=== PATIENT | male | born 1965 | race Hispanic/Latino ===

== ENCOUNTER 2017-07-30 11:16 | Observation (INO) | payer BC, OTHER ==
[~2017-07-30] VITALS: Ht 165.1 cm; Wt 60.2 kg
[~2017-07-30 11:16] MED LIST: DOXY100C2 PO
[2017-07-30 11:36] LABS: BASOPHILS % (AUTO) 0.8 % (0.0-5.0); EOSINOPHILS % (AUTO) 1.1 % (0.0-8.0); HEMATOCRIT 41.9 % (42-54); MEAN CORPUSCULAR HEMOGLOBIN 32.9 pg (27.0-33.0); MEAN CORPUSCULAR HGB CONC 35.7 g/dL (32.0-36.0); MEAN CORPUSCULAR VOLUME 92.1 fL (79-99); MONOCYTES % (AUTO) 8.3 % (3.0-13.0); NEUTROPHILS % (AUTO) 61.8 % (40.0-77.0); PLATELET COUNT (AUTO) 272 K/uL (130-400); RED BLOOD CELL COUNT(AUTO) 4.54 MIL/uL (4.50-6.20); RED CELL DISTRIBUTION WIDTH 13.9 % (11.0-15.5); WHITE BLOOD COUNT (AUTO) 6.9 K/uL (4.8-10.8)
[2017-07-30 11:48] LABS: CREATININE 0.8 mg/dL (0.5-1.5); POTASSIUM 3.9 mmol/L (3.5-5.1)
[2017-07-30 11:54] LABS: PARTIAL THROMBOPLASTIN TIME 28.1 SEC (26.3-35.5); PROTHROMBIN TIME 10.5 SEC (9.6-11.6)
[2017-07-30 12:02] LABS: ALBUMIN 3.5 g/dL (3.5-5.0); BILIRUBIN,TOTAL 0.7 mg/dL (0.2-1.0); CREATINE KINASE MB 0.7 ng/mL (0.5-3.6); TOTAL PROTEIN, SERUM 7.5 g/dL (6.0-8.3)
[2017-07-30] MEDS ORDERED: ENOXAPARIN SODIUM 40 MG/0.4 ML SYRINGE SQ ONE (14:01)
[2017-07-30] MEDS ORDERED: ASPIRIN 81MG TAB.CHEW ONE (14:01)
[2017-07-30 19:21] LABS: CREATINE KINASE MB 0.6 ng/mL (0.5-3.6); CREATINE KINASE, TOTAL 33 U/L (21-232); MYOGLOBIN 19 ng/mL (10-92); TROPONIN I < 0.04 ng/mL (0.00-0.06)
[2017-07-30 21:16] VITALS: BP 134/85
[2017-07-31] VITALS (7 sets, daily range): BP systolic 103–128; BP diastolic 66–84
[2017-07-31 02:35] LABS: HEMATOCRIT 41.6 % (42-54); MEAN CORPUSCULAR HEMOGLOBIN 32.1 pg (27.0-33.0); MEAN CORPUSCULAR HGB CONC 34.7 g/dL (32.0-36.0); MEAN CORPUSCULAR VOLUME 92.4 fL (79-99); NUCLEATED RED BLOOD CELLS 0.1 % (0.0-0.19); PLATELET COUNT (AUTO) 258 K/uL (130-400); RED CELL DISTRIBUTION WIDTH 13.8 % (11.0-15.5); WHITE BLOOD COUNT (AUTO) 7.3 K/uL (4.8-10.8)
[2017-07-31 02:53] LABS: INR 1.02 (0.85-1.15); PARTIAL THROMBOPLASTIN TIME 28.9 SEC (26.3-35.5); PROTHROMBIN TIME 10.7 SEC (9.6-11.6)
[2017-07-31 02:59] LABS: ALANINE AMINOTRANSFERASE 23 U/L (12-78); ALBUMIN 3.2 g/dL (3.5-5.0); ASPARTATE AMINOTRANSFERASE 9 U/L (10-37); BILIRUBIN,TOTAL 0.6 mg/dL (0.2-1.0); CARBON DIOXIDE 26 mmol/L (21-32); CHLORIDE 108 mmol/L (101-111); CHOLESTEROL 146 mg/dL (<200); CREATINE KINASE MB < 0.5 ng/mL (0.5-3.6); CREATINE KINASE, TOTAL 27 U/L (21-232); CREATININE 0.8 mg/dL (0.5-1.5); GLOMERULAR FILTR. RATE CALC 107 mL/min (>60); GLUCOSE,RANDOM 106 mg/dL (70-105); HDL CHOLESTEROL 64 mg/dL (29-71); LDL DIRECT 77 mg/dL (0-99); MYOGLOBIN 19 ng/mL (10-92); POTASSIUM 3.7 mmol/L (3.5-5.1); SODIUM SERUM 142 mmol/L (136-145); TOTAL PROTEIN, SERUM 7.1 g/dL (6.0-8.3); TRIGLYCERIDES 63 mg/dL (30-200); TROPONIN I < 0.04 ng/mL (0.00-0.06); UREA NITROGEN, BLOOD 20 mg/dL (7-18)
[2017-07-31] MEDS ORDERED: REGADENOSON 0.4 MG/5 ML PF SYG IVP SCH (11:15)
[2017-07-31 11:37] LABS: CREATINE KINASE MB < 0.5 ng/mL (0.5-3.6); CREATINE KINASE, TOTAL 26 U/L (21-232); MYOGLOBIN 21 ng/mL (10-92); TROPONIN I < 0.04 ng/mL (0.00-0.06)
[2017-07-31] MEDS: ENOXAPARIN SODIUM 40 MG/0.4 ML SYRINGE SQ SCH (14:31)
[2017-07-31] MEDS: METOPROLOL TARTRATE 25 MG TAB PO SCH ×2 (14:31→20:44)
[2017-07-31] MEDS: ASPIRIN 81MG TAB.CHEW PO SCH (14:31)
[2017-07-31] MEDS ORDERED: LIDOCAINE HCL-MPF 1% 2ML VIAL IVP PRN (15:45)
[2017-07-31] MEDS ORDERED: POTASSIUM CHLORIDE 10% ELIXIR 20 MEQ/15 ML UDCUP PO PRN (15:45)
[2017-07-31] MEDS ORDERED: POTASSIUM CHLORIDE 20MEQ/100ML 100 ML IV PRN (15:45)
[2017-07-31] MEDS ORDERED: MAGNESIUM 2GM PREMIX 50ML 50 ML IV SCH (15:45)
[2017-07-31] MEDS: POTASSIUM CHLORIDE 20 MEQ ERTAB PO PRN ×2 (18:04→23:13)
[2017-07-31 19:00] LABS: CREATINE KINASE MB < 0.5 ng/mL (0.5-3.6); CREATINE KINASE, TOTAL 22 U/L (21-232); MYOGLOBIN 19 ng/mL (10-92); TROPONIN I < 0.04 ng/mL (0.00-0.06)
[2017-08-01 04:37] VITALS: BP 125/87
[2017-08-01 05:31] LABS: MAGNESIUM 2.4 mg/dL (1.80-2.40); POTASSIUM 4.5 mmol/L (3.5-5.1)
[2017-08-01 08:00] VITALS: BP 110/64
[2017-08-01] MEDS: ASPIRIN 81MG TAB.CHEW PO SCH (08:42)
[2017-08-01] MEDS: METOPROLOL TARTRATE 25 MG TAB PO SCH (08:43)
[2017-08-01] MEDS: ENOXAPARIN SODIUM 40 MG/0.4 ML SYRINGE SQ SCH (08:43)
[2017-08-01 11:30] VITALS: BP 108/75
== END 2017-08-01 17:55 | disposition home or self-care (01) ==
LOC: EDH 11:16 → EDHIP 13:15 → INTOOBSV 13:15 → 4BH 20:08
PROVIDERS: ADMIT Internal Medicine Infectious Disease; ATTEND Internal Medicine Infectious Disease
DX: R07.89 Other chest pain (principal); I10 Essential (primary) hypertension; I45.10 Unspecified right bundle-branch block; Z91.19 Patient's noncompliance with other medical treatment and regimen; Z82.49 Family history of ischemic heart disease and other diseases of the circulatory system
CPT/HCPCS: 36415 ×3; 71046; 78452; 80053 ×2; 80061; 82550 ×5; 82553 ×5; 83735 ×2; 83874 ×4; 84132; 84484 ×5; 85025; 85027; 85610 ×2; 85730 ×2; 93005; 93017; 93306; 96365; 96372 ×2; 99285; A9500 ×2; G0378 ×53; J1650 ×3; J2785; J3475; 96374

== ENCOUNTER 2018-01-29 16:47 | Emergency (ER) | payer BC ==
[2018-01-29] MEDS ORDERED: ASPIRIN 325 MG TABLET ONE (16:59)
[2018-01-29] MEDS ORDERED: NITROGLYCERIN 0.4 MG SL TAB SL ONE (16:59)
[2018-01-29] MEDS ORDERED: LIDOCAINE HCL 2% VISCOUS 15 ML UDCUP ONE (17:23)
[2018-01-29] MEDS ORDERED: MAG HYDROX/AL HYDROX/SIMETH ES 30 ML SUSP UDCUP ONE (17:23)
[2018-01-29 17:51] LABS: BASOPHILS % (AUTO) 0.6 % (0.0-5.0); EOSINOPHILS % (AUTO) 1.4 % (0.0-8.0); HEMATOCRIT 43.3 % (42-54); LYMPHOCYTES % (AUTO) 23.6 % (21.0-51.0); MEAN CORPUSCULAR HEMOGLOBIN 32.3 pg (27.0-33.0); MEAN CORPUSCULAR HGB CONC 34.4 g/dL (32.0-36.0); MEAN CORPUSCULAR VOLUME 93.6 fL (79-99); MONOCYTES % (AUTO) 7.8 % (3.0-13.0); NEUTROPHILS % (AUTO) 66.6 % (40.0-77.0); NUCLEATED RED BLOOD CELLS 0.1 % (0.0-0.19); PLATELET COUNT (AUTO) 286 K/uL (130-400); RED BLOOD CELL COUNT(AUTO) 4.62 MIL/uL (4.50-6.20); RED CELL DISTRIBUTION WIDTH 12.9 % (11.0-15.5); WHITE BLOOD COUNT (AUTO) 8.7 K/uL (4.8-10.8)
[2018-01-29 18:15] LABS: INR 0.97 (0.85-1.15); PROTHROMBIN TIME 10.2 SEC (9.6-11.6)
[2018-01-29 18:17] LABS: POTASSIUM 3.9 mmol/L (3.5-5.1)
[2018-01-29 18:32] LABS: ALBUMIN 3.6 g/dL (3.5-5.0); BILIRUBIN,TOTAL 0.4 mg/dL (0.2-1.0); CREATINE KINASE MB 0.9 ng/mL (0.5-3.6); TOTAL PROTEIN, SERUM 7.6 g/dL (6.0-8.3)
[2018-01-29 18:45] LABS: B-TYPE NATRIURETIC PEPTIDE 50 pg/mL (0-100)
== END 2018-01-29 20:03 | disposition home or self-care (01) ==
LOC: EDH 16:47
DX: R07.89 Other chest pain (principal); R10.13 Epigastric pain; Z79.82 Long term (current) use of aspirin; Z79.899 Other long term (current) drug therapy
CPT/HCPCS: 36415; 71045; 80053; 82550; 82553; 83880; 84484; 85025; 85610; 85730; 93005; 94761

== ENCOUNTER 2022-08-16 06:16 | Emergency (ER) | payer BC, OTHER ==
[~2022-08-16] VITALS: Ht 165.1 cm; Wt 68.5 kg
[2022-08-16 07:14] LABS: BASOPHILS % (AUTO) 0.5 % (0.0-5.0); EOSINOPHILS % (AUTO) 0.7 % (0.0-8.0); LYMPHOCYTES % (AUTO) 22.2 % (21.0-51.0); MEAN CORPUSCULAR HEMOGLOBIN 32.7 pg (27.0-33.0); MEAN CORPUSCULAR HGB CONC 33.8 g/dL (32.0-36.0); MEAN CORPUSCULAR VOLUME 96.9 fL (79-99); MONOCYTES % (AUTO) 8.9 % (3.0-13.0); NEUTROPHILS % (AUTO) 67.3 % (40.0-77.0); PLATELET COUNT (AUTO) 261 K/uL (130-400); RED BLOOD CELL COUNT(AUTO) 4.13 MIL/uL (4.50-6.20); RED CELL DISTRIBUTION WIDTH 13.4 % (11.0-15.5); WHITE BLOOD COUNT (AUTO) 5.5 K/uL (4.8-10.8)
[2022-08-16] MEDS ORDERED: IBUP-2070 PO (07:21)
[2022-08-16] MEDS ORDERED: KETOROLAC 60 MG VIAL (30MG/ML) IM ONE (07:30)
[2022-08-16 07:31] LABS: ALBUMIN 3.5 g/dL (3.5-5.0); CREATININE 0.9 mg/dL (0.5-1.5); POTASSIUM 4.2 mmol/L (3.5-5.1)
== END 2022-08-16 08:35 | disposition home or self-care (01) ==
LOC: EDH 06:16
DX: K62.89 Other specified diseases of anus and rectum (principal)
CPT/HCPCS: 99283; 80053; 85025; 36415; 96372; J1885

== ENCOUNTER 2022-12-19 10:59 | Emergency (ER) | payer BC, OTHER ==
[~2022-12-19] VITALS: Ht 165.1 cm; Wt 66.7 kg
[~2022-12-19 10:59] MED LIST changes: -DOXY100C2 PO; +IBUP-2070 PO
[2022-12-19 12:12] LABS: BASOPHILS # (AUTO) 0.05 K/uL (0.00-0.20); BASOPHILS % (AUTO) 0.4 % (0.0-5.0); EOSINOPHILS # (AUTO) 0.05 K/uL (0.00-0.70); EOSINOPHILS % (AUTO) 0.4 % (0.0-8.0); HEMATOCRIT 44.4 % (42-54); LYMPHOCYTES # (AUTO) 1.4 K/uL (1.0-4.8); MEAN CORPUSCULAR HEMOGLOBIN 31.8 pg (27.0-33.0); MEAN CORPUSCULAR HGB CONC 33.6 g/dL (32.0-36.0); MEAN CORPUSCULAR VOLUME 94.7 fL (79-99); MONOCYTES # (AUTO) 1.6 K/uL (0.1-1.0); MONOCYTES % (AUTO) 13.1 % (3.0-13.0); NEUTROPHILS # (AUTO) 8.6 K/uL (1.8-7.7); NEUTROPHILS % (AUTO) 72.4 % (40.0-77.0); PLATELET COUNT (AUTO) 373 K/uL (130-400); RED BLOOD CELL COUNT(AUTO) 4.69 MIL/uL (4.50-6.20); RED CELL DISTRIBUTION WIDTH 12.3 % (11.0-15.5); WHITE BLOOD COUNT (AUTO) 11.9 K/uL (4.8-10.8)
[2022-12-19 12:16] LABS: APPEARANCE,URINE CLEAR (CLEAR); BILIRUBIN,URINE NEGATIVE (NEGATIVE); COLOR,URINE YELLOW (YELLOW); GLUCOSE, URINE (UA) NEGATIVE (NEGATIVE); KETONES,URINE NEGATIVE (NEGATIVE); LEUKOCYTE ESTERASE ,URINE NEGATIVE Leu/uL (NEGATIVE); NITRATE,URINE NEGATIVE (NEGATIVE); OCCULT BLOOD,URINE SMALL (NEGATIVE); PH,URINE 5.5 (5.0-8.0); PROTEIN,URINE 20 mg/dL (NEGATIVE); UROBILINOGEN,URINE 0.2 mg/dL (0.2-1.0)
[2022-12-19 12:24] LABS: INR 0.95 (0.85-1.15); PROTHROMBIN TIME 11.1 SEC (9.6-11.6)
[2022-12-19 12:29] LABS: CREATININE 0.9 mg/dL (0.5-1.5); POTASSIUM 3.8 mmol/L (3.5-5.1)
[2022-12-19 12:38] LABS: BILIRUBIN,TOTAL 0.5 mg/dL (0.2-1.0); TOTAL PROTEIN, SERUM 7.3 g/dL (6.0-8.3)
[2022-12-19 12:46] LABS: ADD UA MICROSCOPIC YES
[2022-12-19 12:55] LABS: BACTERIA,URINE RARE /HPF (None Seen); CALCIUM OXALATE CRYSTALS,UR RARE /LPF (None Seen); MUCUS,URINE RARE LPF (None Seen)
[2022-12-19 13:26] VITALS: BP 124/74; PULSE 71; RESP 17; O2SAT 100
[2022-12-19] MEDS ORDERED: IBUP-2070 PO (14:08)
== END 2022-12-19 14:19 | disposition home or self-care (01) ==
LOC: EDH 10:59
DX: R22.31 Localized swelling, mass and lump, right upper limb (principal); M54.2 Cervicalgia
CPT/HCPCS: 36415; 73120; 80053; 81001; 82550; 83605; 84484; 85025; 85378; 85610; 85651; 85730; 87040; 87088; 93971

== ENCOUNTER 2023-12-05 09:38 | Emergency (ER) | payer BC ==
[~2023-12-05] VITALS: Ht 165.1 cm; Wt 62.1 kg
[2023-12-05 10:41] LABS: CREATININE 0.9 mg/dL (0.5-1.3); POTASSIUM 4.1 mmol/L (3.5-5.1)
[2023-12-05 10:44] LABS: BASOPHILS # (AUTO) 0.03 K/uL (0.00-0.20); BASOPHILS % (AUTO) 0.4 % (0.0-5.0); EOSINOPHILS # (AUTO) 0.06 K/uL (0.00-0.70); EOSINOPHILS % (AUTO) 0.9 % (0.0-8.0); HEMATOCRIT 43.2 % (42-54); IMMATURE GRANULOCYTE ABSOLUTE 0.04 K/uL (0-1); LYMPHOCYTES # (AUTO) 1.5 K/uL (1.0-4.8); LYMPHOCYTES % (AUTO) 21.7 % (21.0-51.0); MEAN CORPUSCULAR HEMOGLOBIN 30.4 pg (27.0-33.0); MEAN CORPUSCULAR HGB CONC 33.1 g/dL (32.0-36.0); MEAN CORPUSCULAR VOLUME 91.7 fL (79-99); MONOCYTES # (AUTO) 0.6 K/uL (0.1-1.0); MONOCYTES % (AUTO) 8.3 % (3.0-13.0); NEUTROPHILS # (AUTO) 4.6 K/uL (1.8-7.7); NEUTROPHILS % (AUTO) 68.1 % (40.0-77.0); PLATELET COUNT (AUTO) 279 K/uL (130-400); RED BLOOD CELL COUNT(AUTO) 4.71 MIL/uL (4.50-6.20); RED CELL DISTRIBUTION WIDTH 12.9 % (11.0-15.5); WHITE BLOOD COUNT (AUTO) 6.8 K/uL (4.8-10.8)
[2023-12-05 10:46] LABS: ALBUMIN 3.5 g/dL (3.5-5.0); BILIRUBIN,TOTAL 0.5 mg/dL (0.2-1.0); INR 1.16 (0.85-1.15); PROTHROMBIN TIME 12.4 SEC (9.6-11.6); TOTAL PROTEIN, SERUM 7.7 g/dL (6.0-8.3)
[2023-12-05 12:10] VITALS: BP 131/76; PULSE 88; RESP 14; O2SAT 99
== END 2023-12-05 12:38 | disposition home or self-care (01) ==
LOC: EDH 09:38
DX: K62.5 Hemorrhage of anus and rectum (principal); Z79.01 Long term (current) use of anticoagulants; Z79.899 Other long term (current) drug therapy; Z98.890 Other specified postprocedural states
CPT/HCPCS: 36415; 80053; 85025; 85610; 85730; 93005

== ENCOUNTER 2024-09-08 17:39 | Emergency (ER) | payer BC, OTHER ==
[~2024-09-08] VITALS: Ht 165.1 cm; Wt 66.7 kg
[2024-09-08 18:07] LABS: BASOPHILS # (AUTO) 0.05 K/uL (0.00-0.20); BASOPHILS % (AUTO) 0.6 % (0.0-5.0); EOSINOPHILS # (AUTO) 0.05 K/uL (0.00-0.70); EOSINOPHILS % (AUTO) 0.6 % (0.0-8.0); HEMATOCRIT 45.1 % (42-54); IMMATURE GRANULOCYTE ABSOLUTE 0.03 K/uL (0-1); LYMPHOCYTES # (AUTO) 1.6 K/uL (1.0-4.8); MEAN CORPUSCULAR HEMOGLOBIN 31.3 pg (27.0-33.0); MEAN CORPUSCULAR HGB CONC 33.5 g/dL (32.0-36.0); MEAN CORPUSCULAR VOLUME 93.4 fL (79-99); MONOCYTES # (AUTO) 0.7 K/uL (0.1-1.0); MONOCYTES % (AUTO) 7.8 % (3.0-13.0); NEUTROPHILS # (AUTO) 6.5 K/uL (1.8-7.7); NEUTROPHILS % (AUTO) 72.7 % (40.0-77.0); PLATELET COUNT (AUTO) 294 K/uL (130-400); RED BLOOD CELL COUNT(AUTO) 4.83 MIL/uL (4.50-6.20); RED CELL DISTRIBUTION WIDTH 13.1 % (11.0-15.5); WHITE BLOOD COUNT (AUTO) 8.9 K/uL (4.8-10.8)
[2024-09-08 18:12] LABS: POTASSIUM 4.4 mmol/L (3.5-5.1)
[2024-09-08 18:17] LABS: ALBUMIN 3.7 g/dL (3.5-5.0); BILIRUBIN,DIRECT 0.1 mg/dL (0.0-0.3); BILIRUBIN,TOTAL 0.3 mg/dL (0.2-1.0); TOTAL PROTEIN, SERUM 7.3 g/dL (6.0-8.3)
--- NOTE | 2024-09-08 18:19 | ERN ---
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 Patient reports shortness of breath, but denies any vomiting, diarrhea, abdominal pain or any other associated symptoms at this time. Clinical Esthetician Dr. Aguirre. Allergies: Coded Allergies: No Known Drug Allergies (Unverified Allergy, 03/23/12) Home Meds Active Scripts Ibuprofen (Ibuprofen) 600 Mg Tablet, 600 MG PO Q6H PRN for PAIN, #30 TAB Prov:MAHESH OCHOA V OIL WELL ENGINEER 12/19/22 Ibuprofen (Ibuprofen) 600 Mg Tablet, 600 MG PO TID PRN for PAIN for 7 Days, #20 TAB Prov:DECLAN MILLER MD 08/16/22 Past Medical History Past Medical History: Cancer Additional Past Medical Hx: COLON CA, LLE CLOT Surgical History: Other Surgical History Other: COLON RESECTION, RT INGUINAL HERNIA Review of System Dictation Constitutional: Negative for fever,chills, and weight loss Eyes: Negative for injury, pain,redness, and discharge ENT: Negative for injury,pain or swelling Cardiovascular: Positive for chest pain negative for palpitations, and edema Respiratory: Positive for shortness of breath negative for cough, and wheezing, Abdomen/GI: Negative for abdominal pain, nausea, vomiting, diarrhea, and constipation Back: Negative for injury and pain : Negative for injury, bleeding and discharge MS/Extremity: Negative for injury and deformity Skin: Negative for rash, and discoloration Neuro: Negative for headache, weakness, numbness, tingling, and seizure Psych: Negative for suicide ideation, homicidal ideation, and hallucinations Initial Vital Sign VS Vital Signs Date Time Temp Pulse Resp B/P (MAP) Pulse Ox O2 Delivery O2 Flow Rate FiO2 09/08/24 17:45 98.2 94 18 130/80 100 Room Air 0 09/08/24 18:25 21 Physical Exam Dictation General: awake, alert, NAD Head/Face: Normocephalic, atraumatic Eyes: PERRL, EOMI, vision at baseline ENT: oral cavity clear, TMs clear, no signs of infection Neck: Trachea midline, supple, no nuchal rigidity Cardiovascular: RRR, normal S1/S2, No MRGs, no JVD Respiratory: CTAB, no respiratory distress, No rales or wheezes Abdomen: Soft, non-tender, non-distended, normal bowel sounds, no guarding or rebound. Skin: Warm, dry, normal turgor, no rash MS/Extremity: Pulses equal, no cyanosis, neurovascular intact, FROM Neuro: COAx4, GCS 15, strength 5/5, CN 2-12 intact, normal cerebellar exam, normal gait, Psych: Normal behavior, mood, and affect normal Results (Laboratory/Radiology) Laboratory/Radiology Laboratory Tests Test 09/08/24 17:54 09/08/24 19:12 White Blood Count 8.9 K/uL (4.8-10.8) Red Blood Count 4.83 MIL/uL (4.50-6.20) Hemoglobin 15.1 g/dL (14.0-18.0) Hematocrit 45.1 % (42-54) Mean Corpuscular Volume 93.4 fL (79-99) Mean Corpuscular Hemoglobin 31.3 pg (27.0-33.0) Mean Corpuscular Hemoglobin Concent 33.5 g/dL (32.0-36.0) Red Cell Distribution Width 13.1 % (11.0-15.5) Platelet Count 294 K/uL (130-400) Mean Platelet Volume 10.4 fL (7.5-10.5) Immature Granulocyte % (Auto) 0.3 % (0-1) Neutrophils (%) (Auto) 72.7 % (40.0-77.0) Lymphocytes (%) (Auto) 18.0 % (21.0-51.0) L Monocytes (%) (Auto) 7.8 % (3.0-13.0) Eosinophils (%) (Auto) 0.6 % (0.0-8.0) Basophils (%) (Auto) 0.6 % (0.0-5.0) Neutrophils # (Auto) 6.5 K/uL (1.8-7.7) Lymphocytes # (Auto) 1.6 K/uL (1.0-4.8) Monocytes # (Auto) 0.7 K/uL (0.1-1.0) Eosinophils # (Auto) 0.05 K/uL (0.00-0.70) Basophils # (Auto) 0.05 K/uL (0.00-0.20) Absolute Immature Granulocyte (auto 0.03 K/uL (0-1) Nucleated Red Blood Cells 0.0 % (0.0-0.19) D-Dimer Quantitative (PE/DVT) 140 ng/mL (0-500) Sodium Level 140 mmol/L (136-145) Potassium Level 4.4 mmol/L (3.5-5.1) Chloride Level 103 mmol/L (101-111) Carbon Dioxide Level 27 mmol/L (21-32) Blood Urea Nitrogen 16 mg/dL (7-18) Creatinine 1.0 mg/dL (0.5-1.3) Glomerular Filtration Rate Calc 86 mL/min (>90) Random Glucose 94 mg/dL (70-105) Total Calcium 8.6 mg/dL (8.5-10.1) Total Bilirubin 0.3 mg/dL (0.2-1.0) Direct Bilirubin 0.1 mg/dL (0.0-0.3) Aspartate Amino Transf (AST/SGOT) 13 U/L (10-37) Alanine Aminotransferase (ALT/SGPT) 21 U/L (12-78) Alkaline Phosphatase 86 U/L (50-136) Troponin I High Sensitivity < 4 ng/L (4-75) L 4 ng/L (4-75) B-Type Natriuretic Peptide 25 pg/mL (0-100) Total Protein 7.3 g/dL (6.0-8.3) Albumin 3.7 g/dL (3.5-5.0) Labs Reviewed?: Yes EKG Comment: EKG 09/08/2024 time 5:36 p.m. ventricular rate 89, RI 134, QRS D 85 QT 367. Sinus rhythm, no STEMI. ED Course ED Course Orders Procedure Category Date Status Time 12 Lead Ekg Tracing- EKG 09/08/24 Logged Technical 17:42 D-Dimer LAB 09/08/24 Complete 17:51 12 Lead Ekg Tracing- EKG 09/08/24 Logged Technical 17:51 B-Type Natriuretic LAB 09/08/24 Complete Peptide 17:51 Basic Metabolic Panel LAB 09/08/24 Complete 17:51 Cbc With Differential LAB 09/08/24 Complete 17:51 Hepatic Function Panel LAB 09/08/24 Complete 17:51 Troponin I High LAB 09/08/24 Complete Sensitivity 17:51 Chest 1vw RAD 09/08/24 Resulted 17:51 Troponin I High LAB 09/08/24 Complete Sensitivity 18:57 Vital Signs Date Time Temp Pulse Resp B/P (MAP) Pulse Ox O2 Delivery O2 Flow Rate FiO2 09/08/24 20:49 74 19 116/74 99 Room Air* 0 21 09/08/24 19:24 98.4 79 17 130/78 98 Room Air* 0 21 09/08/24 18:25 98.6 84 19 130/80 99 Room Air* 0 21 09/08/24 17:45 98.2 94 18 130/80 100 Room Air 0 HEART Score Response (Comments) Value History: Low suspicion (0) 0 EKG: Normal 0 Age: 45-65yrs (+1) 1 Risk Factors: 1-2 risk factors (+1) 1 Initial Troponin: Normal limit (0) 0 HEART Score Risk: Low Risk for MACE (1-3) Total 2 Medical Decision Making MDM MDM: Differential diagnosis: Chest pain, shortness of breath 1900- Patient care is being transferred at shift change Risk of complication and/or morbidity or mortality of patient management: None Medications-Per medication reconciliation Need for hospitalization: Patient does not meet criteria for hospitalization. Need for emergency major/minor surgery: No There are no social concerns with this patient. I independently interpreted the test that were performed, results were reviewed by me and considered findings on radiology if ordered. Medical management and examination interpretation discussions were had by me with other qualified healthcare professionals as indicated for the patient's care. Sequentials troponins were both negative. Patient can go home. DX & DISP Disposition: Discharge Departure Impression: Primary Impression: Chest pain Condition: Stable Additional Instructions: Please follow-up with your primary care physician and for the ultrasound that was ordered by him to assess your left chest mass. Stay well hydrated. Referrals: MAXIMILIANO KILLIAN (PCP) MARY DYER MD Sep 08, 2024 18:19 AMARI CHEN MD Sep 08, 2024 21:06
[2024-09-08 18:24] LABS: B-TYPE NATRIURETIC PEPTIDE 25 pg/mL (0-100)
--- NOTE | 2024-09-08 18:26 | HMCIMG ---
CHEST 1VW HISTORY: Shortness of breath COMPARISON: 01/29/2018 FINDINGS: A frontal projection of the chest was obtained. Mild bilateral pulmonary infiltrates are seen may be related to mild pulmonary vascular congestion with possible superimposed pneumonitis. The heart is borderline enlarged. Degenerative changes are seen. No evidence of aortic calcification is seen. IMPRESSION: 1. Mild bilateral pulmonary infiltrates are seen may be related to mild pulmonary vascular congestion with possible superimposed pneumonitis.
--- NOTE | 2024-09-08 19:23 | NUR ---
PT CARE ASSUMED AT THIS TIME
[2024-09-08 21:27] VITALS: BP 124/70; PULSE 80; RESP 15; TEMP 98.4; O2SAT 98
--- NOTE | 2024-09-10 06:52 | EKG ---
[facility] Test Date: 2024-09-08 Test Time: 17:36:07 Pat Name: DECLAN MENDENHALL Department: ED Room: Gender: Male Chemical Dependency Nurse: [id number] : 1965 Requested By: MARY DYER Order Number: [id number] Reading MD: Measurements Intervals [place] Rate: 89 P: 55 ND: 134 QRS: 68 QRSD: 85 T: 27 QT: 367 QTc: 446 Interpretive Statements Sinus rhythm No previous ECG available for comparison Please click the below link to view image of tracing.
== END 2024-09-08 21:33 | disposition home or self-care (01) ==
LOC: EDH 17:39
DX: R07.89 Other chest pain (principal); R06.02 Shortness of breath; Z98.890 Other specified postprocedural states
CPT/HCPCS: 36415; 71045; 80048; 80076; 83880; 84484; 85025; 85378; 93005; 99283

== ENCOUNTER 2025-01-04 08:57 | Observation (INO) | payer OTHER ==
[~2025-01-04] VITALS: Ht 165.1 cm; Wt 66.1 kg
[~2025-01-04 08:57] MED LIST changes: +IBUP-1492 PO; -IBUP-2070 PO
--- NOTE | 2025-01-04 09:41 | ERN ---
General Chief Complaint: Rectal Bleed Stated Complaint: RECTAL BLEEDING Time Seen by MD: 09:00 Source: patient, family History of Present Illness Initial Comments Patient is a 59-year-old male coming in complaining of rectal bleed. Per patient she has been having this for two weeks. He states that he had a colonoscopy performed and shortly after noticed some bleeding. Patient states that he has a history diverticulosis. Allergies: Coded Allergies: No Known Drug Allergies (Unverified Allergy, 03/23/12) Home Meds Active Scripts Ibuprofen (Ibuprofen) 600 Mg Tablet, 600 MG PO Q6H PRN for PAIN, #30 TAB Prov:MAHESH OCHOA 12/19/22 Ibuprofen (Ibuprofen) 600 Mg Tablet, 600 MG PO TID PRN for PAIN for 7 Days, #20 TAB Prov:DECLAN MILLER MD 08/16/22 Past Medical History Past Medical History: DVT, High Cholesterol Medical History Other: COLON CA, LLE CLOT Past Surgical History: Other Surgical History Other: CA COLON REMOVED 2020,HERNIA REPAIR ROS Dictation CONSTITUTIONAL: No chills, no fever, no weakness, no diaphoresis, no malaise. HEAD/FACE: No signs of trauma. EENT: No eye pain, no blurred vision, no tearing, no double vision, no ear pain, no ear discharge, no nose pain, no nasal congestion, no throat pain, no throat swelling, no mouth pain. RESPIRATORY: No cough, no orthopnea, no SOB, no stridor, no wheezing. CARDIOVASCULAR: No chest pain, no edema, no palpitations, no syncope. GASTROINTESTINAL/ABDOMINAL: No abdominal pain, no constipation, no diarrhea, no nausea, no vomiting. GENITOURINARY: No abnormal discharge, no dysuria, no frequent urination, no hematuria. No complaints of pain in the genitals. MUSCULOSKELETAL: No back pain, no gout, no joint pain, no joint swelling, no muscle pain, no muscle stiffness, no neck pain. INTEGUMENTARY: No change in color, no change in hair/nails, no dryness, no lesion, no lumps, no rash. NEUROLOGICAL/PSYCH: No anxiety, not depressed, no emotional problem, no headache, no numbness, no pre-existing deficit, no history of seizures, no tremors, no weakness. HEMATOLOGIC/LYMPHATIC: Not anemic, no history of blood clots, no apparent bleeding, no bruising, glands not swollen. All Systems Negative, Except as Noted. Physical Exam Physical Exam Dictation VITAL SIGNS: Reviewed. GENERAL APPEARANCE: Alert, oriented x3, no acute distress, obese. HEAD AND FACE: Non-traumatic. EYES: PERRL, pink conjunctivas, eyelid no trauma, anterior chamber clear. EARS: Pinnas intact and no signs of trauma or erythema. Ear canals clear and no discharge. TMs no erythema. NOSE: No discharge, no bleeding. OROPHARYNX: Mouth normal, teeth no caries, tongue pink. Pharynx clear, no erythema. Tonsils no exudates, no abscesses noted. Mucous membrane moist. NECK: Supple, non-tender, no thyromegaly, no masses, no JVD, no bruits. BREAST: Deferred. CHEST: No tenderness, no crepitus, no paradoxical movement, no retractions. LUNGS: Clear, well-ventilated, symmetric, no rales, no wheezing, no rhonchi, no stridor, good breath sounds bilaterally. HEART: Regular rate, regular rhythm, no murmur, no gallops. VASCULAR: No peripheral edema. ABDOMEN: Soft, positive bowel sounds, nondistended, no guarding, nontender, no rebound, no masses no hepatomegaly, no splenomegaly, no Salvador's sign, no hernias. RECTAL: External hemorrhoids on rectal exam, possible internal hemorrhoids due to bright red blood on rectal exam GENITAL: Deferred. NEUROLOGICAL: Normal speech, gross motor function intact, gross sensory function intact. MUSCULOSKELETAL: Neck nontender, full range of motion, back nontender, full range of motion. EXTREMITIES: Nontender, full range of motion. SKIN: Color pink, dry, no turgor, no rash, no lacerations, no abrasions, no contusions. LYMPHATICS: Deferred. Results Laboratory and Microbiology Lab and Micro Result Laboratory Tests Test 01/04/25 09:43 01/04/25 11:16 White Blood Count 6.0 K/uL (4.8-10.8) Red Blood Count 4.93 MIL/uL (4.50-6.20) Hemoglobin 15.5 g/dL (14.0-18.0) Hematocrit 45.6 % (42-54) Mean Corpuscular Volume 92.5 fL (79-99) Mean Corpuscular Hemoglobin 31.4 pg (27.0-33.0) Mean Corpuscular Hemoglobin Concent 34.0 g/dL (32.0-36.0) Red Cell Distribution Width 13.1 % (11.0-15.5) Platelet Count 273 K/uL (130-400) Mean Platelet Volume 10.3 fL (7.5-10.5) Immature Granulocyte % (Auto) 0.7 % (0-1) Neutrophils (%) (Auto) 67.2 % (40.0-77.0) Lymphocytes (%) (Auto) 21.9 % (21.0-51.0) Monocytes (%) (Auto) 8.8 % (3.0-13.0) Eosinophils (%) (Auto) 0.7 % (0.0-8.0) Basophils (%) (Auto) 0.7 % (0.0-5.0) Neutrophils # (Auto) 4.0 K/uL (1.8-7.7) Lymphocytes # (Auto) 1.3 K/uL (1.0-4.8) Monocytes # (Auto) 0.5 K/uL (0.1-1.0) Eosinophils # (Auto) 0.04 K/uL (0.00-0.70) Basophils # (Auto) 0.04 K/uL (0.00-0.20) Absolute Immature Granulocyte (auto 0.04 K/uL (0-1) Nucleated Red Blood Cells 0.0 % (0.0-0.19) Sodium Level 138 mmol/L (136-145) Potassium Level 3.9 mmol/L (3.5-5.1) Chloride Level 105 mmol/L (101-111) Carbon Dioxide Level 27 mmol/L (21-32) Blood Urea Nitrogen 20 mg/dL (7-18) H Creatinine 0.8 mg/dL (0.5-1.3) Glomerular Filtration Rate Calc 101 mL/min (>90) Random Glucose 111 mg/dL (70-105) H Total Calcium 8.8 mg/dL (8.5-10.1) Stool Occult Blood POSITIVE (NEGATIVE) H Labs Reviewed?: Yes EKG/XRAY/US/CT/MRI CT Scan Comment [place] [address] [address] IMAGING REPORT Signed PATIENT: DECLAN MENDENHALL MR#: [id number] : 1965 SEX: M AGE: 59 LOCATION: [facility] ORDER 3 STATUS: [facility] ER REPORT#: [id number] SERVICE 2 REASON: gi bleed ORDERING PHYSICIAN: KLEBER DANIELLE MD PROCEDURE: ABD PEL WO - CT ABDOMEN/PELVIS W/O CONTRAST CT ABDOMEN/PELVIS W/O CONTRAST REASON: gi bleed COMPARISON: None. FINDINGS: Lung bases are clear. The heart and pericardium appears to be normal. There is mitral valve annulus calcification. There is a small hiatal hernia. There are no focal liver lesions. There are normal-appearing kidneys.. Spleen and pancreas appear unremarkable. The gallbladder appears normal as well. Bowel loops appear unremarkable. There are occasional diverticulosis with no evidence of diverticulitis. This includes normal appearance of the appendix There is no evidence of free fluid or intraperitoneal air. There are no focal fluid collections. The retroperitoneum appear normal as do pelvic soft tissue structures. Redemonstrated mild atherosclerotic changes. There is bilateral iliac vein stenting on the left side is extending to the left common femoral vein. The anterior abdominal wall is intact. Osseous structures appear unremarkable. The prostate and seminal vesicle appears to be normal. There is no mass or free fluid seen. There is suggestion of small right-sided hydrocele. IMPRESSION: 1. Small hiatal hernia 2. No acute process seen in the CT of the abdomen and pelvis without intravenous contrast. 3. Small right-sided hydrocele CT was performed with one or more following dose reduction techniques: automated exposure control, adjustment of the mA and kv according to patient's size, or use of a iterative reconstruction technique. DICTATED BY: RONNA PATEL MD DATE: 01/04/25 1059 ELECTRONICALLY SIGNED BY: RONNA PATEL MD DATE: 01/04/25 110 [facility] MDM: Differential diagnosis: GI bleed, hemorrhoids, diverticulitis, diverticulosis, Rationale: Tests considered and ordered secondary to shared decision making include: Previous outside records reviewed: Old ER visits. Risk of complication and/or morbidity or mortality of patient management: None Medications-Per medication reconciliation Need for hospitalization: Patient does meet criteria for hospitalization. Need for emergency major/minor surgery: No There are no social concerns with this patient. Prescription drug management Prescriptions will include symptomatic care Patient's prior external medical records from other ER visits were reviewed by me as indicated. Prior testing and results from previous visits were reviewed. Prior tests were taken into account with medical decision making and resource utilization, independent historian/historians were used to obtain complete medical history. I independently interpreted the test that were performed, results were reviewed by me and considered findings on radiology if ordered. Medical management and examination interpretation discussions were had by me with other qualified healthcare professionals as indicated for the patient's care. Patient will be admitted under the care of hospitalist group for ongoing management. ED Course Orders Procedure Category Date Status Time Cbc With Differential LAB 01/04/25 Complete 09:33 Basic Metabolic Panel LAB 01/04/25 Complete 09:33 Type And Screen BBK 01/04/25 Complete 09:33 Occult Blood Stool LAB 01/04/25 Complete Single Only 09:33 Ct Abdomen/Pelvis W/O CT 01/04/25 Resulted Contrast 09:33 Pantoprazole 40mg Inj PHA 01/04/25 Complete (Protonix 40mg Inj 10:00 Current Medications Medications (Trade) Dose Ordered Sig/Jeffrey Route PRN Reason Start Time Stop Time Status Last Admin Dose Admin Pantoprazole Sodium (PROTonix 40MG INJ) 80 mg ONCE ONCE IVP 01/04/25 10:00 01/04/25 10:01 DC 01/04/25 09:52 Vital Signs Date Time Temp Pulse Resp B/P (MAP) Pulse Ox O2 Delivery O2 Flow Rate FiO2 01/04/25 11:23 98.4 64 17 119/73 100 Room Air* 0 21 01/04/25 09:29 98.4 78 19 129/74 98 Room Air* 0 21 01/04/25 08:59 98.1 77 18 125/75 99 Room Air 0 DX & DISP Disposition: Inpatient Decision to Admit Time: 11:44 Departure Impression: Primary Impression: Anticoagulant long-term use Additional Impression: Bright red blood per rectum Condition: Stable Referrals: MAXIMILIANO KILLIAN (PCP) KLEBER DANIELLE MD Jan 04, 2025 09:41
[2025-01-04 09:53] LABS: IMMATURE GRANULOCYTE ABSOLUTE 0.04 K/uL (0-1); NUCLEATED RED BLOOD CELLS 0.0 % (0.0-0.19); PLATELET COUNT (AUTO) 273 K/uL (130-400); RED BLOOD CELL COUNT(AUTO) 4.93 MIL/uL (4.50-6.20); RED CELL DISTRIBUTION WIDTH 13.1 % (11.0-15.5); WHITE BLOOD COUNT (AUTO) 6.0 K/uL (4.8-10.8)
[2025-01-04 10:00] LABS: CREATININE 0.8 mg/dL (0.5-1.3); GLOMERULAR FILTR. RATE CALC 101.0 mL/min (>90); GLUCOSE,RANDOM 111.0 mg/dL (70-105); SODIUM SERUM 138.0 mmol/L (136-145); UREA NITROGEN, BLOOD 20.0 mg/dL (7-18)
--- NOTE | 2025-01-04 11:04 | HMCIMG ---
CT ABDOMEN/PELVIS W/O CONTRAST REASON: gi bleed COMPARISON: None. FINDINGS: Lung bases are clear. The heart and pericardium appears to be normal. There is mitral valve annulus calcification. There is a small hiatal hernia. There are no focal liver lesions. There are normal-appearing kidneys.. Spleen and pancreas appear unremarkable. The gallbladder appears normal as well. Bowel loops appear unremarkable. There are occasional diverticulosis with no evidence of diverticulitis. This includes normal appearance of the appendix There is no evidence of free fluid or intraperitoneal air. There are no focal fluid collections. The retroperitoneum appear normal as do pelvic soft tissue structures. Redemonstrated mild atherosclerotic changes. There is bilateral iliac vein stenting on the left side is extending to the left common femoral vein. The anterior abdominal wall is intact. Osseous structures appear unremarkable. The prostate and seminal vesicle appears to be normal. There is no mass or free fluid seen. There is suggestion of small right-sided hydrocele. IMPRESSION: 1. Small hiatal hernia 2. No acute process seen in the CT of the abdomen and pelvis without intravenous contrast. 3. Small right-sided hydrocele CT was performed with one or more following dose reduction techniques: automated exposure control, adjustment of the mA and kv according to patient's size, or use of a iterative reconstruction technique.
[2025-01-04] MEDS ORDERED: RIVA20TA PO (11:46)
[2025-01-04] MEDS ORDERED: CLOP75TA32 PO (11:46)
[2025-01-04 12:15] LABS: INR 1.42 (0.85-1.15)
--- NOTE | 2025-01-04 12:16 | HP ---
[facility] HISTORY AND PHYSICAL Date of Service: Jan 04, 2025 Time of Service: 12:09 HISTORY OF PRESENT ILLNESS: Date of service: 01/04/2025, patient was seen in ER room 18 59-year-old male with underlying history of lower extremity deep vein thrombosis, history of PAD, history of chronic anticoagulation with Xarelto, history of colon cancer in 2020 status post removal of tumor via Colonoscopy who presented to the ER for further evaluation of hematochezia. Patient states that he had a flexible sigmoidoscopy done by Dr.Dao Powers, on 12/20/2024, since then, he has been having persistent 4-5 episodes of hematochezia everyday. He has had two episodes of hematochezia today and felt lightheaded and dizzy prompting him to come to the ER for further evaluation. Denies any melena. Per report of the sigmoidoscopy, patient was noted to have mild diverticulosis of the sigmoid colon and post polypectomy scar in the distal rectum with no specimen collected. Denies any fevers or chills. Denies any significant abdominal pain. Denies any syncopal falls today other than dizziness. Patient has underlying history of deep vein thrombosis of the lower extremity along with PAD. He has been maintained on chronic anticoagulation with Xarelto as well as antiplatelet therapy with Plavix. He took both the dose of Xarelto and Plavix today even with the persistent bleeding. Labs on presentation showed WBC count of 6000, hemoglobin of 15.5, platelet count of [id number]. BMP showed sodium of 138, potassium 3.9, bicarb of 27, BUN of 20, creatinine of 0.8. Patient will be admitted under hospitalist service in cardiac telemetry floor. We will monitor closely for further signs of bleeding. We will start patient on IV fluids and IV antibiotics. Consultation with Gastroenterology will be requested. Given persistent bleeding, we will have to hold anticoagulation and antiplatelet therapy. 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 Anticipate hospitalization for at least 48-72 hours. We will see how patient progresses closely. REVIEW OF SYSTEMS CONSTITUTIONAL: Denies fevers, chills, or night sweats. No unintentional weight loss reported. NEUROLOGICAL: Denies headache, amaurosis fugax, motor weakness, sensory deficit, vertigo/spinning sensation, gait abnormalities, or tremors. ENT: No hearing loss, otalgia, otorrhea, rhinitis, rhinorrhea, hoarseness, or sore throat. CARDIOVASCULAR: Denies any exertional angina, dyspnea on exertion, orthopnea, paroxysmal nocturnal dyspnea, palpitations, life-threatening arrhythmias, claudication. PULMONARY: Denies any shortness of breath, cough, phlegm/sputum, hemoptysis, pleuritic chest pain. SLEEP: Denies morning headaches, daytime somnolence or napping. Denies difficulty falling asleep, staying asleep, waking from sleep. Denies knowledge of snoring. GASTROINTESTINAL: Hematochezia since procedure on 12/20/2024 denies hematemesis, melena or significant abdominal pain. GENITOURINARY: Denies frequency, urgency, nocturia, hematuria or incontinence (Storage/Irritative symptoms.) Low urinary stream, straining to void, urinary intermittency or hesitancy, splitting of the voiding stream, terminal dribbling. ENDOCRINOLOGIC: Denies polyuria, polydipsia, polyphagia or heat/cold intolerances. HEMATOLOGIC: Denies thrombophilia/previous clots, or coagulopathy/bleeding disorders. ONCOLOGIC: Denies personal history of malignancy. DERMATOLOGIC: Denies rashes or pruritus. PSYCHIATRIC: Denies any suicidal or homicidal ideation. Denies hallucinations. PAST MEDICAL HISTORY: History of deep vein thrombosis of the left lower extremity, peripheral arterial disease, history of chronic anticoagulation with Xarelto, patient reports having a colon tumor in 2020 which was resected by colonoscopy PAST SURGICAL HISTORY: Patient reports having peripheral lower extremity vascular intervention previously, he has had prior colonoscopies, history of abdominal hernia repair PAST SOCIAL HISTORY: Denies active smoking, drinks socially, denies illicit drug use FAMILY HISTORY: Denies pertinent family history Allergies: No known drug allergies Home medications: Patient reports being on Plavix 75 mg daily, Xarelto 20 mg daily Coded Allergies: No Known Drug Allergies (Unverified Allergy, 03/23/12) PHYSICAL EXAM GENERAL APPEARANCE: The patient is awake, alert, and oriented, in no acute cardiopulmonary distress. NEUROLOGICAL: Cranial nerves II-XII grossly intact. Motor is 5/5 in bilateral upper and lower extremities proximal to distal. No sensory deficits. HEENT: Face is symmetric. Pupils are equal and reactive. Extraocular movements are intact. NECK: Supple. No JVD. No thyromegaly. No submental, submandibular, pre- /postauricular, occipital or supraclavicular lymphadenopathy. CHEST: Normal chest expansion. No Telemetry. LUNGS: Absence of any rales, rhonchi or any wheezing. CARDIOVASCULAR: Regular. S1 and S2 normal. No appreciable rubs, murmurs or gallops. ABDOMEN: Soft, nontender, and nondistended. There is no rebound, voluntary guarding, or rigidity. External hemorrhoids noted with no active bleeding, bright red blood noted in rectal vault : Deferred. No Lay. EXTREMITIES: Non-edematous and not cyanotic. No clubbing. Good capillary refill. SKIN: No skin breakdown. Vital Sign (Last 24 Hours) 01/04/25 11:23 Temp 98.4 Pulse 64 Resp 17 B/P (MAP) 119/73 Pulse Ox 100 O2 Delivery Room Air* O2 Flow Rate 0 FiO2 21 LABS: Laboratory: Test 01/04/25 11:16 01/04/25 09:43 Range/Units Stool Occult Blood POSITIVE H NEGATIVE White Blood Count 6.0 4.8-10.8 K/uL Red Blood Count 4.93 4.50-6.20 MIL/uL Hemoglobin 15.5 14.0-18.0 g/dL Hematocrit 45.6 42-54 % Mean Corpuscular Volume 92.5 79-99 fL Mean Corpuscular Hemoglobin 31.4 27.0-33.0 pg Mean Corpuscular Hemoglobin Concent 34.0 32.0-36.0 g/dL Red Cell Distribution Width 13.1 11.0-15.5 % Platelet Count 273 130-400 K/uL Mean Platelet Volume 10.3 7.5-10.5 fL Immature Granulocyte % (Auto) 0.7 0-1 % Neutrophils (%) (Auto) 67.2 40.0-77.0 % Lymphocytes (%) (Auto) 21.9 21.0-51.0 % Monocytes (%) (Auto) 8.8 3.0-13.0 % Eosinophils (%) (Auto) 0.7 0.0-8.0 % Basophils (%) (Auto) 0.7 0.0-5.0 % Neutrophils # (Auto) 4.0 1.8-7.7 K/uL Lymphocytes # (Auto) 1.3 1.0-4.8 K/uL Monocytes # (Auto) 0.5 0.1-1.0 K/uL Eosinophils # (Auto) 0.04 0.00-0.70 K/uL Basophils # (Auto) 0.04 0.00-0.20 K/uL Absolute Immature Granulocyte (auto 0.04 0-1 K/uL Nucleated Red Blood Cells 0.0 0.0-0.19 % Sodium Level 138 136-145 mmol/L Potassium Level 3.9 3.5-5.1 mmol/L Chloride Level 105 101-111 mmol/L Carbon Dioxide Level 27 21-32 mmol/L Blood Urea Nitrogen 20 H 7-18 mg/dL Creatinine 0.8 0.5-1.3 mg/dL Glomerular Filtration Rate Calc 101 >90 mL/min Random Glucose 111 H 70-105 mg/dL Total Calcium 8.8 8.5-10.1 mg/dL Current Medications Medications (Trade) Dose Ordered Sig/Jeffrey Route PRN Reason Start Time Stop Time Status Last Admin Dose Admin Acetaminophen (TYLenol 325MG TAB) 650 mg Q6H PRN PO MILD PAIN (1-3) 01/04/25 12:00 02/03/25 11:59 Ceftriaxone Sodium (ROCEphine 1G INJ) 1 gm Q24H IVPB 01/04/25 12:00 01/14/25 11:59 Lactated Ringer's 1,000 ml @ 80 mls/hr [id number] IV 01/04/25 12:00 02/03/25 11:59 Metronidazole/ Sodium Chloride 100 ml @ 100 mls/hr TID IVPB 01/04/25 14:00 01/14/25 13:59 Multivitamins Therapeutic (Multivitamin Tablet) 1 tab DAILY PO 01/05/25 09:00 02/04/25 08:59 Ondansetron HCl (zoFRAN 4MG INJ) 4 mg Q6H PRN IVP NAUSEA/VOMITING 01/04/25 12:00 02/03/25 11:59 Pantoprazole Sodium (PROTonix 40MG INJ) 40 mg BID IVP 01/04/25 21:00 02/03/25 20:59 DIAGNOSTICS / RADIOLOGY: SERVICE REASON: gi bleed ORDERING PHYSICIAN: KLEBER DANIELLE MD PROCEDURE: ABD PEL WO - CT ABDOMEN/PELVIS W/O CONTRAST CT ABDOMEN/PELVIS W/O CONTRAST REASON: gi bleed COMPARISON: None. FINDINGS: Lung bases are clear. The heart and pericardium appears to be normal. There is mitral valve annulus calcification. There is a small hiatal hernia. There are no focal liver lesions. There are normal-appearing kidneys.. Spleen and pancreas appear unremarkable. The gallbladder appears normal as well. Bowel loops appear unremarkable. There are occasional diverticulosis with no evidence of diverticulitis. This includes normal appearance of the appendix There is no evidence of free fluid or intraperitoneal air. There are no focal fluid collections. The retroperitoneum appear normal as do pelvic soft tissue structures. Redemonstrated mild atherosclerotic changes. There is bilateral iliac vein stenting on the left side is extending to the left common femoral vein. The anterior abdominal wall is intact. Osseous structures appear unremarkable. The prostate and seminal vesicle appears to be normal. There is no mass or free fluid seen. There is suggestion of small right-sided hydrocele. IMPRESSION: 1. Small hiatal hernia 2. No acute process seen in the CT of the abdomen and pelvis without intravenous contrast. 3. Small right-sided hydrocele CT was performed with one or more following dose reduction techniques: automated exposure control, adjustment of the mA and kv according to patient's size, or use of a iterative reconstruction technique. DICTATED BY: RONNA PATEL MD DATE: 01/04/25 1059 ELECTRONICALLY SIGNED BY: RONNA PATEL MD DATE: 01/04/25 1107 ASSESSMENT: Persistent nonresolving hematochezia post sigmoidoscopy, 12/20/2024, POA history of post polypectomy scar involving the distal rectum, POA Dizziness/lightheadedness, likely secondary to underlying bleeding, POA History of diverticulosis, POA History of chronic anticoagulation with Xarelto as outpatient, POA History of chronic antiplatelet therapy with Plavix, POA History of lower extremity deep vein thrombosis, POA History of peripheral arterial disease, POA Reported history of colon tumor which was resected by colonoscopy in 2020, POA PLAN: Patient will be admitted to cardiac telemetry floor We will start patient on IV hydration with LR at 80 mL/hour, patient's initial hemoglobin of 15.5 is likely not accurate, we will know patient's true hemoglobin in the next 24 hours We will check H&H q.6 hours We will monitor closely for frequency and amount of further episodes of hematochezia We will keep patient on IV Protonix 40 mg twice daily We will start patient on IV Rocephin/Flagyl We will maintain at least two peripheral IVs, 18 gauges Consultation with GI will be requested, with Dr. Munoz We will have with Cardiology follow up with the patient, patient is on anticoagulation and antiplatelet therapy with nonresolving hematochezia ongoing for the past two weeks, patient does have underlying history of DVT and PAD We will see if repeat colonoscopy is anticipated during the hospitalization Transfuse to maintain hemoglobin greater than 7-8 or in case of hemodynamic instability We will check an orthostatic vitals in the patient We will keep patient on SCDs for DVT prophylaxis Date of service: 01/04/2025 Prognosis: Guarded Anticipate hospitalization for at least 48-72 hours Plan of care was discussed with patient and family at bedside, Isauro Garcia MD Advanced Care Planning: Which of the following were discussed: Hospice care: Yes __ No _x_ Therapeutic options: Yes _x_ No __ Advance directives: Yes _x_ No __ Other discussions: Discussed with who?: Patient Voluntary nature of this service was explained to the patient? Yes _x_ No __ Amount of time spent: 20 minutes ISAURO GARCIA MD Jan 04, 2025 12:16
[2025-01-04 12:35] LABS: ASPARTATE AMINOTRANSFERASE 16.0 U/L (10-37); TOTAL PROTEIN, SERUM 7.7 g/dL (6.0-8.3)
[2025-01-04] MEDS: LACTATED RINGERS 1000ML 1,000 ML IV SCH (12:59)
--- NOTE | 2025-01-04 17:03 | HMCIMG ---
EXAM: US for Deep Venous Thrombosis, bilateral Lower Extremity. CLINICAL HISTORY: Leg Pain and Swelling TECHNIQUE: Real-time ultrasound scan of the veins of the bilateral lower extremity with color Doppler flow, spectral waveform analysis and compression. COMPARISON: None provided. FINDINGS: DEEP VEINS: The common femoral, superficial femoral, and popliteal veins are echolucent and compressible. There is normal color Doppler flow throughout. The visualized calf veins appear patent. SOFT TISSUES: No popliteal fossa cyst or other abnormalities. IMPRESSION: No deep venous thrombosis evident on bilateral lower extremity examination. /[facility]
--- NOTE | 2025-01-04 17:20 | NUR ---
REPORT GIVEN TO MARRY RN, ROOM 221, [facility] SENT UP WITH PATIENT, NO COMPLICATIONS
[2025-01-04] MEDS: PEG 3350/NA SULF,BICARB,CL/KCL 4000 ML SOLN PO ONE ×2 (17:30→19:46)
[2025-01-04 17:51] VITALS: O2SAT 99
[2025-01-04 18:36] VITALS: BP 132/75; PULSE 66; RESP 16; TEMP 98.1; O2SAT 99
[2025-01-04 19:15] VITALS: BP 122/83; PULSE 62; RESP 18; TEMP 98.5
[2025-01-04 20:00] VITALS: O2SAT 97
[2025-01-05] VITALS (18 sets, daily range): BP systolic 97–131; BP diastolic 53–86; PULSE 64–99; RESP 18–20; TEMP 97.8–98.6; O2SAT 98
--- NOTE | 2025-01-05 02:16 | NUR ---
Patient with episode of bloody stool x1.
[2025-01-05 04:28] LABS: IMMATURE GRANULOCYTE ABSOLUTE 0.04 K/uL (0-1); NUCLEATED RED BLOOD CELLS 0.0 % (0.0-0.19); PLATELET COUNT (AUTO) 268 K/uL (130-400); RED BLOOD CELL COUNT(AUTO) 4.59 MIL/uL (4.50-6.20); RED CELL DISTRIBUTION WIDTH 13.1 % (11.0-15.5); WHITE BLOOD COUNT (AUTO) 6.7 K/uL (4.8-10.8)
[2025-01-05 04:56] LABS: ASPARTATE AMINOTRANSFERASE 30.0 U/L (10-37); CREATININE 0.8 mg/dL (0.5-1.3); GLOMERULAR FILTR. RATE CALC 101.0 mL/min (>90); GLUCOSE,RANDOM 82.0 mg/dL (70-105); SODIUM SERUM 140.0 mmol/L (136-145); TOTAL PROTEIN, SERUM 7.1 g/dL (6.0-8.3); UREA NITROGEN, BLOOD 13.0 mg/dL (7-18)
[2025-01-05] MEDS ORDERED: LIDOCAINE PF 100MG/5ML (2%) SYRINGE 5ML ONE (08:07)
[2025-01-05] MEDS: MULTIVITAMIN TABLET PO SCH (09:55)
--- NOTE | 2025-01-05 14:30 | PN ---
[facility] PROGRESS NOTE Date of Service: Jan 05, 2025 Time of Service: 14:28 SUBJECTIVE: [ ] 01/05 PATIENT REMAINS ADMITTED TO THE PCU, CASE DISCUSSED WITH THE RN, NO ACUTE EVENTS OVERNIGHT, THE TIME OF MY VISIT COMFORTABLE, HEMODYNAMICALLY STABLE, AFEBRILE, SATURATING NORMAL ON ROOM AIR, HE DENIES MELENA, NO HEMATOCHEZIA, NO HEMATEMESIS, NO HEMATURIA, NO DYSURIA, NO NAUSEA, NO VOMITING, NO ABDOMINAL DISCOMFORT, TOLERATING DIET. CBC REVIEWED, HEMOGLOBIN MILDLY DROPPED FROM 15.5- 14.4. GI CONSULTATION REQUESTED, FOLLOW INPUT RECOMMENDATION. AT BEDSIDE, CASE DISCUSSED, ALL QUESTIONS ANSWERED. REVIEW OF SYSTEMS CONSTITUTIONAL: Denies fevers, chills, or night sweats. No unintentional weight loss reported. NEUROLOGICAL: Denies headache, amaurosis fugax, motor weakness, sensory deficit, vertigo/spinning sensation, gait abnormalities, or tremors. ENT: No hearing loss, otalgia, otorrhea, rhinitis, rhinorrhea, hoarseness, or sore throat. CARDIOVASCULAR: Denies any exertional angina, dyspnea on exertion, orthopnea, paroxysmal nocturnal dyspnea, palpitations, life-threatening arrhythmias, claudication. PULMONARY: Denies any shortness of breath, cough, phlegm/sputum, hemoptysis, pleuritic chest pain. SLEEP: Denies morning headaches, daytime somnolence or napping. Denies difficulty falling asleep, staying asleep, waking from sleep. Denies knowledge of snoring. GASTROINTESTINAL: Hematochezia since procedure on 12/20/2024 denies hematemesis, melena or significant abdominal pain. GENITOURINARY: Denies frequency, urgency, nocturia, hematuria or incontinence (Storage/Irritative symptoms.) Low urinary stream, straining to void, urinary intermittency or hesitancy, splitting of the voiding stream, terminal dribbling. ENDOCRINOLOGIC: Denies polyuria, polydipsia, polyphagia or heat/cold intolerances. HEMATOLOGIC: Denies thrombophilia/previous clots, or coagulopathy/bleeding disorders. ONCOLOGIC: Denies personal history of malignancy. DERMATOLOGIC: Denies rashes or pruritus. PSYCHIATRIC: Denies any suicidal or homicidal ideation. Denies hallucinations. PHYSICAL EXAM GENERAL APPEARANCE: The patient is awake, alert, and oriented, in no acute cardiopulmonary distress. NEUROLOGICAL: Cranial nerves II-XII grossly intact. Motor is 5/5 in bilateral upper and lower extremities proximal to distal. No sensory deficits. HEENT: Face is symmetric. Pupils are equal and reactive. Extraocular movements are intact. NECK: Supple. No JVD. No thyromegaly. No submental, submandibular, pre- /postauricular, occipital or supraclavicular lymphadenopathy. CHEST: Normal chest expansion. No Telemetry. LUNGS: Absence of any rales, rhonchi or any wheezing. CARDIOVASCULAR: Regular. S1 and S2 normal. No appreciable rubs, murmurs or g allops. ABDOMEN: Soft, nontender, and nondistended. There is no rebound, voluntary guarding, or rigidity. External hemorrhoids noted with no active bleeding, bright red blood noted in rectal vault : Deferred. No Lay. EXTREMITIES: Non-edematous and not cyanotic. No clubbing. Good capillary refill. SKIN: No skin breakdown. Vital Signs (last 8hr) Date Time Temp Pulse Resp B/P (MAP) Pulse Ox O2 Delivery O2 Flow Rate FiO2 01/05/25 12:00 98.6 75 20 131/76 99 Room Air 01/05/25 08:55 66 18 106/66 100 Room Air 01/05/25 08:50 67 18 109/67 100 Room Air 01/05/25 08:45 69 18 106/67 100 Room Air 01/05/25 08:40 71 18 103/65 100 PROCEDURE MASK 10.0 01/05/25 08:35 71 18 109/58 100 PROCEDURE MASK 10.0 01/05/25 08:30 97.9 78 18 103/53 100 PROCEDURE MASK 01/05/25 07:50 Mask 01/05/25 07:50 Mask 10.0 01/05/25 07:27 98.6 70 20 116/74 99 Room Air 01/05/25 07:00 98 Room Air* 0 21 LABS: Laboratory: Test 01/05/25 03:46 01/04/25 13:04 01/04/25 11:16 01/04/25 09:43 Range/Units White Blood Count 6.7 4.8-10.8 K/uL Red Blood Count 4.59 4.50-6.20 MIL/uL Hemoglobin 14.4 14.0-18.0 g/dL Hematocrit 42.4 42-54 % Mean Corpuscular Volume 92.4 79-99 fL Mean Corpuscular Hemoglobin 31.4 27.0-33.0 pg Mean Corpuscular Hemoglobin Concent 34.0 32.0-36.0 g/dL Red Cell Distribution Width 13.1 11.0-15.5 % Platelet Count 268 130-400 K/uL Mean Platelet Volume 10.6 H 7.5-10.5 fL Immature Granulocyte % (Auto) 0.6 0-1 % Neutrophils (%) (Auto) 64.3 40.0-77.0 % Lymphocytes (%) (Auto) 23.6 21.0-51.0 % Monocytes (%) (Auto) 10.1 3.0-13.0 % Eosinophils (%) (Auto) 0.7 0.0-8.0 % Basophils (%) (Auto) 0.7 0.0-5.0 % Neutrophils # (Auto) 4.3 1.8-7.7 K/uL Lymphocytes # (Auto) 1.6 1.0-4.8 K/uL Monocytes # (Auto) 0.7 0.1-1.0 K/uL Eosinophils # (Auto) 0.05 0.00-0.70 K/uL Basophils # (Auto) 0.05 0.00-0.20 K/uL Absolute Immature Granulocyte (auto 0.04 0-1 K/uL Nucleated Red Blood Cells 0.0 0.0-0.19 % Sodium Level 140 136-145 mmol/L Potassium Level 4.6 3.5-5.1 mmol/L Chloride Level 106 101-111 mmol/L Carbon Dioxide Level 26 21-32 mmol/L Blood Urea Nitrogen 13 7-18 mg/dL Creatinine 0.8 0.5-1.3 mg/dL Glomerular Filtration Rate Calc 101 >90 mL/min Random Glucose 82 70-105 mg/dL Total Calcium 8.9 8.5-10.1 mg/dL Magnesium Level 2.10 1.80-2.40 mg/dL Total Bilirubin 1.0 # 0.2-1.0 mg/dL Aspartate Amino Transf (AST/SGOT) 30 10-37 U/L Alanine Aminotransferase (ALT/SGPT) 39 12-78 U/L Alkaline Phosphatase 79 50-136 U/L Total Protein 7.1 6.0-8.3 g/dL Albumin 3.3 L 3.5-5.0 g/dL Lactic Acid Level 1.3 0.8-2.5 mmol/L Stool Occult Blood POSITIVE H NEGATIVE Prothrombin Time 14.5 H 9.6-11.6 SEC Prothromb Time International Ratio 1.42 H 0.85-1.15 Activated Partial Thromboplast Time 40.4 H 26.3-35.5 SEC Direct Bilirubin 0.2 0.0-0.3 mg/dL Current Medications Medications (Trade) Dose Ordered Sig/Jeffrey Route PRN Reason Start Time Stop Time Status Last Admin Dose Admin Acetaminophen (TYLenol 325MG TAB) 650 mg Q6H PRN PO MILD PAIN (1-3) 01/04/25 12:00 02/03/25 11:59 Ceftriaxone Sodium (ROCEphine 1G INJ) 1 gm Q24H IVPB 01/04/25 12:00 01/14/25 11:59 01/05/25 12:00 1 GM Lactated Ringer's 1,000 ml @ 80 mls/hr [id number] IV 01/04/25 12:00 02/03/25 11:59 01/05/25 12:51 80 MLS/HR Metronidazole/ Sodium Chloride 100 ml @ 100 mls/hr TID IVPB 01/04/25 14:00 01/14/25 13:59 01/05/25 09:55 100 MLS/HR Multivitamins Therapeutic (Multivitamin Tablet) 1 tab DAILY PO 01/05/25 09:00 02/04/25 08:59 01/05/25 09:55 1 TAB Ondansetron HCl (zoFRAN 4MG INJ) 4 mg Q6H PRN IVP NAUSEA/VOMITING 01/04/25 12:00 02/03/25 11:59 Pantoprazole Sodium (PROTonix 40MG INJ) 40 mg BID IVP 01/04/25 21:00 02/03/25 20:59 01/05/25 09:55 40 MG DIAGNOSTICS / RADIOLOGY: [ ] ASSESSMENT: Persistent nonresolving hematochezia post sigmoidoscopy, 12/20/2024, POA history of post polypectomy scar involving the distal rectum, POA Dizziness/lightheadedness, likely secondary to underlying bleeding, POA History of diverticulosis, POA History of chronic anticoagulation with Xarelto as outpatient, POA History of chronic antiplatelet therapy with Plavix, POA History of lower extremity deep vein thrombosis, POA History of peripheral arterial disease, POA Reported history of colon tumor which was resected by colonoscopy in 2020, POA PLAN: Patient admitted to cardiac telemetry floor CONTINUE patient on IV hydration with LR at 80 mL/hour, patient's initial hemoglobin of 15.5 is likely not accurate, we will know patient's true hemoglobin in the next 24 hours Continue to follow CBC transfuse as needed We will monitor closely for frequency and amount of further episodes of hematochezia We will keep patient on IV Protonix 40 mg twice daily We will continue patient on IV Rocephin/Flagyl We will maintain at least two peripheral IVs, 18 gauges Consultation with GI requested, with Dr. Munoz We will have with Cardiology follow up with the patient, patient is on anticoagulation and antiplatelet therapy with nonresolving hematochezia ongoing for the past two weeks, patient does have underlying history of DVT and PAD We will see if repeat colonoscopy is anticipated during the hospitalization Transfuse to maintain hemoglobin greater than 7-8 or in case of hemodynamic instability We will check an orthostatic vitals in the patient We will keep patient on SCDs for DVT prophylaxis Plan of action discussed, all questions answered, both patient and agreed and understood the information provided. Total time spent greater than 30 minutes. SAM LOVE MD Jan 05, 2025 14:29
--- NOTE | 2025-01-05 18:52 | NUR ---
INITIAL/DCP HOME Met w pt this afternoon to discuss dcp. PT mentions that he lives w his . He is independent w ambulation and ADLs. He does not own any DME or receive services. His preferred pharmacy is [facility]. Discharge goal is to return home. Spouse to provide transportation upon discharge. Addendum: 01/06/25 at 1855 by HARRIET MCKEON CM Amended: Links added.
[2025-01-06] VITALS (7 sets, daily range): BP systolic 108–135; BP diastolic 62–77; PULSE 65–90; RESP 16–20; TEMP 97.8–98.9; O2SAT 97–100
--- NOTE | 2025-01-06 08:42 | PN ---
[facility] PROGRESS NOTE Date of Service: Jan 06, 2025 Time of Service: 08:41 SUBJECTIVE: [ ] 01/05 PATIENT REMAINS ADMITTED TO THE PCU, CASE DISCUSSED WITH THE RN, NO ACUTE EVENTS OVERNIGHT, THE TIME OF MY VISIT COMFORTABLE, HEMODYNAMICALLY STABLE, AFEBRILE, SATURATING NORMAL ON ROOM AIR, HE DENIES MELENA, NO HEMATOCHEZIA, NO HEMATEMESIS, NO HEMATURIA, NO DYSURIA, NO NAUSEA, NO VOMITING, NO ABDOMINAL DISCOMFORT, TOLERATING DIET. CBC REVIEWED, HEMOGLOBIN MILDLY DROPPED FROM 15.5- 14.4. GI CONSULTATION REQUESTED, FOLLOW INPUT RECOMMENDATION. AT BEDSIDE, CASE DISCUSSED, ALL QUESTIONS ANSWERED. 01/06 the patient is seen and examined earlier this morning during my rounding, remains admitted to the PCU, case discussed with the RN, no acute events overnight, the time of my visit patient comfortably in bed, hemodynamically stable, alert oriented x3, eating breakfast, tolerating well, denies nausea, no vomiting, no abdominal pain. The patient had a bowel movement this morning, noted mild amount of bright red blood per rectum. Patient with a history of DVT on Xarelto at home, Doppler of the lower extremities negative for deep venous thrombosis. Consultation with Cardiology and network control operator has been requested, we will follow input and recommendation. CBC has remained stable, no need for blood transfusion. Discussed with the patient, all questions answered, in agreement. Colonoscopy done 01/05/2025 with the following findings: -one 4 mm polyp of the rectosigmoid colon. Resection not attempted. -nonbleeding internal hemorrhoids. -the rectum, sigmoid colon, descending colon, transfer colon, ascending colon, cecal valve and appendiceal orifice are normal. -no specimens collected. Recommendation: -return patient to the hospital [facility] for ongoing care, resume previous diet, continue present medications. -Proctofoam HC, applied externally b.i.d. -follow up in GI clinic as an outpatient. REVIEW OF SYSTEMS CONSTITUTIONAL: Denies fevers, chills, or night sweats. No unintentional weight loss reported. NEUROLOGICAL: Denies headache, amaurosis fugax, motor weakness, sensory def icit, vertigo/spinning sensation, gait abnormalities, or tremors. ENT: No hearing loss, otalgia, otorrhea, rhinitis, rhinorrhea, hoarseness, or sore throat. CARDIOVASCULAR: Denies any exertional angina, dyspnea on exertion, orthopnea, paroxysmal nocturnal dyspnea, palpitations, life-threatening arrhythmias, claudication. PULMONARY: Denies any shortness of breath, cough, phlegm/sputum, hemoptysis, pleuritic chest pain. SLEEP: Denies morning headaches, daytime somnolence or napping. Denies difficulty falling asleep, staying asleep, waking from sleep. Denies knowledge of snoring. GASTROINTESTINAL: Hematochezia since procedure on 12/20/2024 denies hematemesis, melena or significant abdominal pain. GENITOURINARY: Denies frequency, urgency, nocturia, hematuria or incontinence (Storage/Irritative symptoms.) Low urinary stream, straining to void, urinary intermittency or hesitancy, splitting of the voiding stream, terminal dribbling. ENDOCRINOLOGIC: Denies polyuria, polydipsia, polyphagia or heat/cold intolerances. HEMATOLOGIC: Denies thrombophilia/previous clots, or coagulopathy/bleeding disorders. ONCOLOGIC: Denies personal history of malignancy. DERMATOLOGIC: Denies rashes or pruritus. PSYCHIATRIC: Denies any suicidal or homicidal ideation. Denies hallucinations. PHYSICAL EXAM GENERAL APPEARANCE: The patient is awake, alert, and oriented, in no acute cardiopulmonary distress. NEUROLOGICAL: Cranial nerves II-XII grossly intact. Motor is 5/5 in bilateral upper and lower extremities proximal to distal. No sensory deficits. HEENT: Face is symmetric. Pupils are equal and reactive. Extraocular movements are intact. NECK: Supple. No JVD. No thyromegaly. No submental, submandibular, pre- /postauricular, occipital or supraclavicular lymphadenopathy. CHEST: Normal chest expansion. No Telemetry. LUNGS: Absence of any rales, rhonchi or any wheezing. CARDIOVASCULAR: Regular. S1 and S2 normal. No appreciable rubs, murmurs or gallops. ABDOMEN: Soft, nontender, and nondistended. There is no rebound, voluntary guarding, or rigidity. External hemorrhoids noted with no active bleeding, bright red blood noted in rectal vault : Deferred. No Lay. EXTREMITIES: Non-edematous and not cyanotic. No clubbing. Good capillary refill. SKIN: No skin breakdown. Vital Signs (last 8hr) Date Time Temp Pulse Resp B/P (MAP) Pulse Ox O2 Delivery O2 Flow Rate FiO2 01/06/25 07:56 98.1 71 16 116/77 97 Room Air 01/06/25 03:53 97.9 65 20 108/62 99 Room Air LABS: Laboratory: Test 01/05/25 19:39 01/05/25 03:46 01/04/25 13:04 01/04/25 11:16 Range/Units Whole Blood Glucose 123 H 70-110 MG/DL White Blood Count 6.7 4.8-10.8 K/uL Red Blood Count 4.59 4.50-6.20 MIL/uL Hemoglobin 14.4 14.0-18.0 g/dL Hematocrit 42.4 42-54 % Mean Corpuscular Volume 92.4 79-99 fL Mean Corpuscular Hemoglobin 31.4 27.0-33.0 pg Mean Corpuscular Hemoglobin Concent 34.0 32.0-36.0 g/dL Red Cell Distribution Width 13.1 11.0-15.5 % Platelet Count 268 130-400 K/uL Mean Platelet Volume 10.6 H 7.5-10.5 fL Immature Granulocyte % (Auto) 0.6 0-1 % Neutrophils (%) (Auto) 64.3 40.0-77.0 % Lymphocytes (%) (Auto) 23.6 21.0-51.0 % Monocytes (%) (Auto) 10.1 3.0-13.0 % Eosinophils (%) (Auto) 0.7 0.0-8.0 % Basophils (%) (Auto) 0.7 0.0-5.0 % Neutrophils # (Auto) 4.3 1.8-7.7 K/uL Lymphocytes # (Auto) 1.6 1.0-4.8 K/uL Monocytes # (Auto) 0.7 0.1-1.0 K/uL Eosinophils # (Auto) 0.05 0.00-0.70 K/uL Basophils # (Auto) 0.05 0.00-0.20 K/uL Absolute Immature Granulocyte (auto 0.04 0-1 K/uL Nucleated Red Blood Cells 0.0 0.0-0.19 % Sodium Level 140 136-145 mmol/L Potassium Level 4.6 3.5-5.1 mmol/L Chloride Level 106 101-111 mmol/L Carbon Dioxide Level 26 21-32 mmol/L Blood Urea Nitrogen 13 7-18 mg/dL Creatinine 0.8 0.5-1.3 mg/dL Glomerular Filtration Rate Calc 101 >90 mL/min Random Glucose 82 70-105 mg/dL Total Calcium 8.9 8.5-10.1 mg/dL Magnesium Level 2.10 1.80-2.40 mg/dL Total Bilirubin 1.0 # 0.2-1.0 mg/dL Aspartate Amino Transf (AST/SGOT) 30 10-37 U/L Alanine Aminotransferase (ALT/SGPT) 39 12-78 U/L Alkaline Phosphatase 79 50-136 U/L Total Protein 7.1 6.0-8.3 g/dL Albumin 3.3 L 3.5-5.0 g/dL Lactic Acid Level 1.3 0.8-2.5 mmol/L Stool Occult Blood POSITIVE H NEGATIVE Test 01/04/25 09:43 Range/Units Prothrombin Time 14.5 H 9.6-11.6 SEC Prothromb Time International Ratio 1.42 H 0.85-1.15 Activated Partial Thromboplast Time 40.4 H 26.3-35.5 SEC Direct Bilirubin 0.2 0.0-0.3 mg/dL Current Medications Medications (Trade) Dose Ordered Sig/Jeffrey Route PRN Reason Start Time Stop Time Status Last Admin Dose Admin Acetaminophen (TYLenol 325MG TAB) 650 mg Q6H PRN PO MILD PAIN (1-3) 01/04/25 12:00 02/03/25 11:59 Ceftriaxone Sodium (ROCEphine 1G INJ) 1 gm Q24H IVPB 01/04/25 12:00 01/14/25 11:59 01/05/25 12:00 1 GM Lactated Ringer's 1,000 ml @ 80 mls/hr [id number] IV 01/04/25 12:00 02/03/25 11:59 01/05/25 12:51 80 MLS/HR Metronidazole/ Sodium Chloride 100 ml @ 100 mls/hr TID IVPB 01/04/25 14:00 01/14/25 13:59 01/05/25 20:27 100 MLS/HR Multivitamins Therapeutic (Multivitamin Tablet) 1 tab DAILY PO 01/05/25 09:00 02/04/25 08:59 01/05/25 09:55 1 TAB Ondansetron HCl (zoFRAN 4MG INJ) 4 mg Q6H PRN IVP NAUSEA/VOMITING 01/04/25 12:00 02/03/25 11:59 Pantoprazole Sodium (PROTonix 40MG INJ) 40 mg BID IVP 01/04/25 21:00 02/03/25 20:59 01/05/25 20:27 40 MG DIAGNOSTICS / RADIOLOGY: [ ] ASSESSMENT: Persistent nonresolving hematochezia post sigmoidoscopy, 12/20/2024, POA history of post polypectomy scar involving the distal rectum, POA Dizziness/lightheadedness, likely secondary to underlying bleeding, POA History of diverticulosis, POA History of chronic anticoagulation with Xarelto as outpatient, POA History of chronic antiplatelet therapy with Plavix, POA History of lower extremity deep vein thrombosis, POA History of peripheral arterial disease, POA Reported history of colon tumor which was resected by colonoscopy in 2020, POA Patient with bilateral iliac vein stenting, on the left extending to the left common femoral vein, POA PLAN: NEURO: Minimize central acting medications as possible. Fall Precautions. Well lighted room through the day and minimize interruptions through the night to prevent acute delirium. PULMONARY: Supplemental 02 as needed BiPAP as necessary, for respiratory distress Titrate Fio2 to keep Spo2 > or = 90% DuoNebs and CPT as needed IS hourly while awake for pulmonary hygiene prn Out of bed to chair as tolerated Maintain aspiration precautions at all times CARDIOVASCULAR: Follow hemodynamics. Vital signs per facility protocol GI & NUTRITION: Continue nutritional support Aspirations precautions Prokinetic agents and laxatives as needed KIDNEYS & ELECTROLYTES: Strict monitoring of intake and output Daily weights Avoid nephrotoxic agents Monitor electrolytes and replace as needed Goal urine output of 30mL/hr or 0.5mL/kg/hr Medications to be dosed according to renal function. Avoid contrast if possible ENDOCRINE: Maintain blood glucose between 100-180 at all times. Insulin sliding scale for blood glucose management Hypoglycemia and hyperglycemia protocol in place INFECTIOUS DISEASE: Trend temperature, WBC and procalcitonin level Follow cultures, deescalate antibiotics as soon as possible. Panculture if new onset fever HEMATOLOGY & COAGULATION: Monitor H&H. Keep Hgb > 7 Transfuse 1 unit of PRBC for Hgb < 7 Transfuse 1 pack of platelets of platelets < 20, 000 Watch for any signs and symptoms of bleeding SKIN: Pressure ulcer prevention per facility protocol Specialty mattress as needed ORTHO/REHAB Continue PT/OT PRN: MEDICATIONS Tylenol 650 mg po every 4 hrs for fever zofran 4 mg IV every 6 hrs for n/v Hydralazine 5 mg IV every 4 hrs systolic pressure > 160 bowel regiment: lactulose 20 gm PO BID PRN constipation Supportive measures: Continue GI and DVT prophylaxis Disposition: Pending improvement in clinical condition All questions answered time spent: > 35 min SAM LOVE MD Jan 06, 2025 08:42
[2025-01-06 08:53] LABS: NUCLEATED RED BLOOD CELLS 0.0 % (0.0-0.19); PLATELET COUNT (AUTO) 242.0 K/uL (130-400); RED BLOOD CELL COUNT(AUTO) 4.47 MIL/uL (4.50-6.20); RED CELL DISTRIBUTION WIDTH 12.9 % (11.0-15.5); WHITE BLOOD COUNT (AUTO) 6.8 K/uL (4.8-10.8)
[2025-01-06 09:53] LABS: ASPARTATE AMINOTRANSFERASE 11.0 U/L (10-37); CREATININE 0.8 mg/dL (0.5-1.3); GLOMERULAR FILTR. RATE CALC 101.0 mL/min (>90); GLUCOSE,RANDOM 126.0 mg/dL (70-105); SODIUM SERUM 140.0 mmol/L (136-145); TOTAL PROTEIN, SERUM 6.5 g/dL (6.0-8.3); UREA NITROGEN, BLOOD 15.0 mg/dL (7-18)
--- NOTE | 2025-01-06 15:47 | CONS ---
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 He also has hx of DVT, PAD and is currently on Xarelto and plavix. Patient underwent a flexsig on 12/21/24, and was found to have scattered diverticula in the sigmoid colon, a post polypectomy scar was found in the distal rectum. CT of abdomen and pelvis shows small hiatal hernia, small right- sided hydrocele. No acute process seen in the CT of abdomen and pelvis without IV contrast. Ultrasound of the lower extremities showing no deep venous thrombosis bilaterally. Patient's WBC of 6.0 hemoglobin 15.5, platelets 27. CMP significant for BUN of 20 which has since resolved, total calcium of 8.4, LFTs are normal, albumin 3.7. Patient's vital signs have remained stable. He underwent a colonoscopy on 01/05/25 with no acute findings. Patient's respirations are unlabored. BBS care clear. Abdomen is soft and not distended. Active BS present. Patient reports he is able to move arms and neck better and has not had swelling to upper extremities but he continues with unsteady gait and uses cane and walker to assist. Recommend he continue with daily fiber intake and keep f/u appt at office on 01/13/25. He agreed. ] Review of Systems: CONSTITUTIONAL: No malaise or change in sensation of wellbeing. ENMT: No rhinorrhea, otorrhea, sinus pain, ear ache. CARDIOVASCULAR: No angina, palpitations, orthopnea or paroxysmal dyspnea. RESPIRATORY: No SOB. GASTROINTESTINAL: No abdominal pain, nausea, vomiting, diarrhea, hematemesis, melena or change in the patient's habitual bowel movements consistency/number. GENITOURINARY: No dysuria, hematuria or change in bladder continence. MUSCULOSKELETAL: No new muscle pain or decrease in muscular strength. No new joint swelling, redness or tenderness. SKIN: No new rash. Past Medical History: History of deep vein thrombosis of the left lower extremity, peripheral arterial disease, history of chronic anticoagulation with Xarelto, patient reports having a colon tumor in 2021 which was resected by colonoscopy PAST SURGICAL HISTORY: Patient reports having peripheral lower extremity vascular intervention previously, he has had prior colonoscopies, history of abdominal hernia repair PAST SOCIAL HISTORY: Denies active smoking, drinks socially, denies illicit drug use Coded Allergies: No Known Drug Allergies (Unverified Allergy, 03/23/12) Physical Exam: GEN: Awake, alert, oriented in person, time and place, and in no acute distress. HEENT: No rhinorrhea. Oral pharyngeal mucosa is pink, moist and within normal limits. CHEST: Inspection, palpation of the chest were unremarkable. Lung auscultation revealed normal breath sounds bilaterally. CARDIAC: PMI is within normal limits. Heart sounds are regular. Normal S1, S2. No gallop or murmur. ABD: Soft, non-tender and not distended. No peritoneal signs on palpation. No organomegaly. Normal bowel sounds. EXT: No cyanosis or clubbing. No edema. SKIN: Intact. No rashes. JOINTS: No evidence of synovitis or acute arthritis. NEURO: Alert and oriented to name, place and person. Normal speech. Strength improved Vital Sign (Last 24 Hours) 01/06/25 01/06/25 08:00 11:54 Temp 97.9 Pulse 90 Resp 16 B/P (MAP) 115/73 Pulse Ox 100 O2 Delivery Room Air O2 Flow Rate 0 FiO2 21 Intake & Output (last 24hrs) 01/05/25 01/05/25 01/06/25 15:00 23:00 07:00 Intake Total 700.0 ml 560.0 ml Output Total 700 ml Balance 700.0 ml -140.0 ml Laboratory: [ ] Laboratory: Test 01/06/25 08:14 01/05/25 19:39 01/05/25 03:46 Range/Units White Blood Count 6.8 4.8-10.8 K/uL Red Blood Count 4.47 L 4.50-6.20 MIL/uL Hemoglobin 14.0 14.0-18.0 g/dL Hematocrit 42.1 42-54 % Mean Corpuscular Volume 94.2 79-99 fL Mean Corpuscular Hemoglobin 31.3 27.0-33.0 pg Mean Corpuscular Hemoglobin Concent 33.3 32.0-36.0 g/dL Red Cell Distribution Width 12.9 11.0-15.5 % Platelet Count 242 130-400 K/uL Mean Platelet Volume 10.1 7.5-10.5 fL Nucleated Red Blood Cells 0.0 0.0-0.19 % Sodium Level 140 136-145 mmol/L Potassium Level 3.9 3.5-5.1 mmol/L Chloride Level 106 101-111 mmol/L Carbon Dioxide Level 26 21-32 mmol/L Blood Urea Nitrogen 15 7-18 mg/dL Creatinine 0.8 0.5-1.3 mg/dL Glomerular Filtration Rate Calc 101 >90 mL/min Random Glucose 126 H 70-105 mg/dL Total Calcium 8.4 L 8.5-10.1 mg/dL Magnesium Level 1.80 1.80-2.40 mg/dL Total Bilirubin 0.7 0.2-1.0 mg/dL Aspartate Amino Transf (AST/SGOT) 11 10-37 U/L Alanine Aminotransferase (ALT/SGPT) 25 12-78 U/L Alkaline Phosphatase 68 50-136 U/L Total Protein 6.5 6.0-8.3 g/dL Albumin 3.0 L 3.5-5.0 g/dL Whole Blood Glucose 123 H 70-110 MG/DL Immature Granulocyte % (Auto) 0.6 0-1 % Neutrophils (%) (Auto) 64.3 40.0-77.0 % Lymphocytes (%) (Auto) 23.6 21.0-51.0 % Monocytes (%) (Auto) 10.1 3.0-13.0 % Eosinophils (%) (Auto) 0.7 0.0-8.0 % Basophils (%) (Auto) 0.7 0.0-5.0 % Neutrophils # (Auto) 4.3 1.8-7.7 K/uL Lymphocytes # (Auto) 1.6 1.0-4.8 K/uL Monocytes # (Auto) 0.7 0.1-1.0 K/uL Eosinophils # (Auto) 0.05 0.00-0.70 K/uL Basophils # (Auto) 0.05 0.00-0.20 K/uL Absolute Immature Granulocyte (auto 0.04 0-1 K/uL Current Medications Medications (Trade) Dose Ordered Sig/Jeffrey Route PRN Reason Start Time Stop Time Status Last Admin Dose Admin Acetaminophen (TYLenol 325MG TAB) 650 mg Q6H PRN PO MILD PAIN (1-3) 01/04/25 12:00 02/03/25 11:59 Ceftriaxone Sodium (ROCEphine 1G INJ) 1 gm Q24H IVPB 01/04/25 12:00 01/14/25 11:59 01/06/25 13:05 1 GM Hydrocortisone/ Pramoxine (prOCTOFOAM-HC) 1 APPL BID RC 01/06/25 10:00 02/05/25 09:59 01/06/25 10:36 1 APPL Lactated Ringer's 1,000 ml @ 80 mls/hr [id number] IV 01/04/25 12:00 02/03/25 11:59 01/06/25 13:08 80 MLS/HR Metronidazole/ Sodium Chloride 100 ml @ 100 mls/hr TID IVPB 01/04/25 14:00 01/14/25 13:59 01/06/25 14:31 100 MLS/HR Multivitamins Therapeutic (Multivitamin Tablet) 1 tab DAILY PO 01/05/25 09:00 02/04/25 08:59 01/06/25 10:35 1 TAB Ondansetron HCl (zoFRAN 4MG INJ) 4 mg Q6H PRN IVP NAUSEA/VOMITING 01/04/25 12:00 02/03/25 11:59 Pantoprazole Sodium (PROTonix 40MG INJ) 40 mg BID IVP 01/04/25 21:00 02/03/25 20:59 01/06/25 10:35 40 MG Diagnostics / Radiology: [COPY/PASTE HERE IF NO REPORTS PLEASE DELETE SECTION] Assessment: [hematochezia Cb of stromal tumor of rectum s/p resection PAD Chronic anticoagulation use ] Plan: [No further Gi intervetion at this time Patient is to keep f/u appt at [facility] office on 01/13/25 at 10:30am Please call with questions, concerns, and change in clinical status Thank you for this consult. ] RAYRAY LOZANO NP Jan 06, 2025 15:47
--- NOTE | 2025-01-06 20:46 | CONS ---
CARDIOLOGY CONSULT HPI This is a 59-year-old male with a past medical history DVT which he underwent a venogram OctoberOctober 25 in which she received a left iliac vein stent. In which patient is taking Plavix and Xarelto. Initially patient presented to the ED for Hematochezia, underwent a GI workup that revealed no significant findings other than hemorrhoids. Patient's hemoglobin has remained stable throughout. He denies any chest pain or shortness of breath to me we have been consulted for antiplatelet/anticoagulant recommendations. Past medical history As mentioned above Surgical history noncontributory Social history No smoking, no to alcohol use Allergies No known drug allergies Patient History: Family history: Cardiovascular disease FATHER, , Age: 76, Cause: Heart attack, Fraternal twin BROTHER Family history: Hypertension FATHER, , Age: 76, Cause: Heart attack, Fraternal twin BROTHER Parkinson's disease Stroke FATHER, , Age: 76, Cause: Heart attack, Fraternal twin Unknown BROTHER BROTHER SISTER SISTER SISTER SISTER SON SON Vitals/Labs ROS: General: No malaise or fever. Neurological: No fainting episodes or seizures. HEENT: No nasal congestion or nasal secretion. Cardiac: No chest pain or palpitations. Gastrointestinal: No vomiting or diarrhea. Skin: No rashes or lesions. Hematological: No bruises or bleeding. Musculoskeletal: No joint pains or arthralgias. Psychiatric: No depression or panic attacks. PE: GEN: Awake, alert, oriented in person, time and place, and in no acute distress. HEENT: No sinus tenderness. Tympanic membranes were not examined. No rhinorrhea. Oral pharyngeal mucosa is pink, moist and within normal limits. Neck is supple with no cervical lymphadenopathy, thyromegaly or JVD. CHEST: Inspection, palpation and percussion of the chest were unremarkable. Lung auscultation revealed normal breath sounds bilaterally. CARDIAC: PMI is within normal limits. Heart sounds are regular. Normal S1, S2. No gallop or murmur. ABD: Soft, non-tender and not distended. No peritoneal signs on palpation. No organomegaly. Normal bowel sounds. EXT: No cyanosis or clubbing. No edema. SKIN: Intact. No rashes. JOINTS: No evidence of synovitis or acute arthritis. NEURO: Alert and oriented to name, place and person. Vital Signs Date Time Temp Pulse Resp B/P (MAP) Pulse Ox O2 Delivery O2 Flow Rate FiO2 01/06/25 19:07 99.0 79 18 135/75 99 Room Air 01/06/25 08:00 0 21 Laboratory Tests 01/06/25 08:14 Allergies: Coded Allergies: No Known Drug Allergies (Unverified Allergy, 03/23/12) Medications Current Medications Pantoprazole Sodium 80 mg ONCE ONCE IVP Last administered on 01/04/25at 09:52; Start 01/04/25 at 10:00; Stop 01/04/25 at 10:01; Status DC Lactated Ringer's 1,000 ml @ 80 mls/hr [id number] IV Last administered on 01/06/25at 13:08; Start 01/04/25 at 12:00; Stop 02/03/25 at 11:59 Ceftriaxone Sodium 1 gm Q24H IVPB Last administered on 01/06/25at 13:05; Start 01/04/25 at 12:00; Stop 01/14/25 at 11:59 Metronidazole/ Sodium Chloride 100 ml @ 100 mls/hr TID IVPB Last administered on 01/06/25at 14:31; Start 01/04/25 at 14:00; Stop 01/14/25 at 13:59 Acetaminophen 650 mg Q6H PRN PO; Start 01/04/25 at 12:00; Stop 02/03/25 at 11:59 Ondansetron HCl 4 mg Q6H PRN IVP; Start 01/04/25 at 12:00; Stop 02/03/25 at 11:59 Pantoprazole Sodium 40 mg BID IVP Last administered on 01/06/25at 10:35; Start 01/04/25 at 21:00; Stop 02/03/25 at 20:59 Multivitamins Therapeutic 1 tab DAILY PO Last administered on 01/06/25at 10:35; Start 01/05/25 at 09:00; Stop 02/04/25 at 08:59 Polyethylene Glycol/ Electrolytes 4,000 ml ONCE ONCE PO Last administered on 01/04/25at 17:30; Start 01/04/25 at 17:30; Stop 01/04/25 at 17:31; Status DC Polyethylene Glycol/ Electrolytes 4,000 ml ONCE ONCE PO Last administered on 01/04/25at 19:46; Start 01/04/25 at 19:30; Stop 01/04/25 at 19:31; Status DC Propofol 200 mg STK-MED ONCE IV; Start 01/05/25 at 08:06; Stop 01/05/25 at 08:07; Status DC Lidocaine HCl 100 mg STK-MED ONCE .ROUTE; Start 01/05/25 at 08:07; Stop 01/05/25 at 08:07; Status DC Hydrocortisone/ Pramoxine 1 APPL BID RC Last administered on 01/06/25at 10:36; Start 01/06/25 at 10:00; Stop 02/05/25 at 09:59 ASSESSMENT: 1. Venous insufficiency 2. History of right iliac vein stenting October 2024 3. History of DVT on oral anticoagulation 4. Hematochezia negative GI workup From cardiology standpoint patient's hemoglobin has remained stable throughout the hospital stay he has no active bleeding at this time underwent a negative GI workup. Patient has recent venous stenting a month and a half ago in [facility]. I will restart patient's antiplatelet anticoagulation and recommend monitoring patient only day and check CBC in the morning BIMAL MULLINS PAC Jan 06, 2025 20:46
[2025-01-06] MEDS: RIVAROXABAN 20 MG TABLET PO SCH (22:31)
[2025-01-07 00:47] VITALS: BP 117/65; PULSE 72; RESP 18; TEMP 98.6
[2025-01-07 04:19] VITALS: BP 109/63; PULSE 64; RESP 18; TEMP 98.2
[2025-01-07 08:00] VITALS: O2SAT 100
[2025-01-07 08:30] VITALS: BP 128/79; PULSE 76; RESP 16; TEMP 98.3
[2025-01-07 12:04] VITALS: BP 125/77; PULSE 70; RESP 16; TEMP 98.4
[2025-01-07] MEDS ORDERED: HYDR30CR79 TP (12:51)
--- NOTE | 2025-01-07 15:30 | NUR ---
DISCHARGE INSTRUCTIONS WERE GIVEN TO THIS PATIENT AND EDUCATION PROVIDED REGARDING NEW MEDICATIONS. HE VOICED UNDERSTANDING. PIV TO LEFT WRIST WAS REMOVED WITH CATHETER INTACT AND DRY DRESSING APPLIED. TELE PACK WAS REMOVED AND RETURNED. PATIENT WAS TAKEN DOWN TO PRIVATE VEHICLE VIA WHEEL CHAIR.
--- NOTE | 2025-01-08 07:38 | DS ---
Discharge Summary Hospital Course Summary: Date of service 01/07/2025 Patient admitted to hospital 01/04/2025 with the following history of the present illness: Date of service: 01/04/2025, patient was seen in ER room 18 59-year-old male with underlying history of lower extremity deep vein thrombosis, history of PAD, history of chronic anticoagulation with Xarelto, history of colon cancer in 2020 status post removal of tumor via Colonoscopy who presented to the ER for further evaluation of hematochezia. Patient states that he had a flexible sigmoidoscopy done by Dr.Dao Powers, on 12/20/2024, since then, he has been having persistent 4-5 episodes of hematochezia everyday. He has had two episodes of hematochezia today and felt lightheaded and dizzy prompting him to come to the ER for further evaluation. Denies any melena. Per report of the sigmoidoscopy, patient was noted to have mild diverticulosis of the sigmoid colon and post polypectomy scar in the distal rectum with no specimen collected. Denies any fevers or chills. Denies any significant abdominal pain. Denies any syncopal falls today other than dizziness. Patient has underlying history of deep vein thrombosis of the lower extremity along with PAD. He has been maintained on chronic anticoagulation with Xarelto as well as antiplatelet therapy with Plavix. He took both the dose of Xarelto and Plavix today even with the persistent bleeding. Labs on presentation showed WBC count of 6000, hemoglobin of 15.5, platelet c ount of [id number]. BMP showed sodium of 138, potassium 3.9, bicarb of 27, BUN of 20, creatinine of 0.8. Patient will be admitted under hospitalist service in cardiac telemetry floor. We will monitor closely for further signs of bleeding. We will start patient on IV fluids and IV antibiotics. Consultation with Gastroenterology will be requested. Given persistent bleeding, we will have to hold anticoagulation and antiplatelet therapy. We will request patient's primary protection consultant to follow up with this patient as well. Anticipate hospitalization for at least 48-72 hours. We will see how patient progresses closely. HOSPITAL COURSE 01/05 PATIENT REMAINS ADMITTED TO THE PCU, CASE DISCUSSED WITH THE RN, NO ACUTE EVENTS OVERNIGHT, THE TIME OF MY VISIT COMFORTABLE, HEMODYNAMICALLY STABLE, AFEBRILE, SATURATING NORMAL ON ROOM AIR, HE DENIES MELENA, NO HEMATOCHEZIA, NO HEMATEMESIS, NO HEMATURIA, NO DYSURIA, NO NAUSEA, NO VOMITING, NO ABDOMINAL DISCOMFORT, TOLERATING DIET. CBC REVIEWED, HEMOGLOBIN MILDLY DROPPED FROM 15.5- 14.4. GI CONSULTATION REQUESTED, FOLLOW INPUT RECOMMENDATION. AT BEDSIDE, CASE DISCUSSED, ALL QUESTIONS ANSWERED. 01/06 the patient is seen and examined earlier this morning during my rounding, remains admitted to the PCU, case discussed with the RN, no acute events overnight, the time of my visit patient comfortably in bed, hemodynamically stable, alert oriented x3, eating breakfast, tolerating well, denies nausea, no vomiting, no abdominal pain. The patient had a bowel movement this morning, noted mild amount of bright red blood per rectum. Patient with a history of DVT on Xarelto at home, Doppler of the lower extremities negative for deep venous thrombosis. Consultation with Cardiology and deputy sheriff has been requ ested, we will follow input and recommendation. CBC has remained stable, no need for blood transfusion. Discussed with the patient, all questions answered, in agreement. Colonoscopy done 01/05/2025 with the following findings: -one 4 mm polyp of the rectosigmoid colon. Resection not attempted. -nonbleeding internal hemorrhoids. -the rectum, sigmoid colon, descending colon, transfer colon, ascending colon, cecal valve and appendiceal orifice are normal. -no specimens collected. Recommendation: -return patient to the hospital [facility] for ongoing care, resume previous diet, continue present medications. -Proctofoam HC, applied externally b.i.d. -follow up in GI clinic as an outpatient. 01/07 patient remains admitted to the PCU, case discussed with the RN, no acute events overnight, hemodynamically stable, no chest pain, no shortness a breath, no nausea, no vomiting, no abdominal pain, denies melena, no hematochezia, no hematemesis, no hematuria, hemoglobin stable at 4.0. Patient evaluated by protection consultant, okay to discharge home, follow up as an outpatient. Patient to resume Plavix and Xarelto prior to presented to the hospital. PHYSICAL EXAM GENERAL APPEARANCE: The patient is awake, alert, and oriented, in no acute cardiopulmonary distress. NEUROLOGICAL: Cranial nerves II-XII grossly intact. Motor is 5/5 in bilateral upper and lower extremities proximal to distal. No sensory deficits. HEENT: Face is symmetric. Pupils are equal and reactive. Extraocular movements are intact. NECK: Supple. No JVD. No thyromegaly. No submental, submandibular, pre- /postauricular, occipital or supraclavicular lymphadenopathy. CHEST: Normal chest expansion. No Telemetry. LUNGS: Absence of any rales, rhonchi or any wheezing. CARDIOVASCULAR: Regular. S1 and S2 normal. No appreciable rubs, murmurs or gallops. ABDOMEN: Soft, nontender, and nondistended. There is no rebound, voluntary guarding, or rigidity. External hemorrhoids noted with no active bleeding, bright red blood noted in rectal vault : Deferred. No Lay. EXTREMITIES: Non-edematous and not cyanotic. No clubbing. Good capillary refill. SKIN: No skin breakdown. Dragline Mechanic(s): Cardiology and deputy sheriff services Procedure(s): Colonoscopy done 01/05/2025 with the following findings: -one 4 mm polyp of the rectosigmoid colon. Resection not attempted. -nonbleeding internal hemorrhoids. -the rectum, sigmoid colon, descending colon, transfer colon, ascending colon, cecal valve and appendiceal orifice are normal. -no specimens collected. Recommendation: -return patient to the hospital [facility] for ongoing care, resume previous diet, continue present medications. -Proctofoam HC, applied externally b.i.d. -follow up in GI clinic as an outpatient. Assessment/Plan: Final diagnosis Persistent nonresolving hematochezia post sigmoidoscopy, 12/20/2024, POA history of post polypectomy scar involving the distal rectum, POA Status post colonoscopy with finding of one 4 mm polyp rectosigmoid colon, nonbleeding internal hemorrhoids. Dizziness/lightheadedness, likely secondary to underlying bleeding, POA History of diverticulosis, POA History of chronic anticoagulation with Xarelto as outpatient, POA History of chronic antiplatelet therapy with Plavix, POA History of lower extremity deep vein thrombosis, POA History of peripheral arterial disease, POA Reported history of colon tumor which was resected by colonoscopy in 2020, POA Patient with bilateral iliac vein stenting, on the left extending to the left common femoral vein, POA Discharge Instructions: The patient to be discharged home, to follow up with primary care physician, Cardiology and Gastroenterology as an outpatient. Advised the patient to repeat his hemoglobin level in the next 2-3 days, discussed with PCP, return to hospital if his condition changes. Per Cardiology okay to resume Xarelto and Plavix. Patient agreed and understood the information provided. Home Medications: Active Scripts Hydrocortisone (Anusol-Hc) 2.5 % Cream..g., 1 APPL TP BID for 12 Days, #30 GM 1 Refill Prov:SAM LOVE MD 01/07/25 Reported Medications Rivaroxaban (Xarelto) 20 Mg Tablet, 20 MG PO DAILY, TAB 01/04/25 Clopidogrel Bisulfate (Clopidogrel) 75 Mg Tablet, 75 MG PO DAILY, TAB 01/04/25 Discontinued Scripts Ibuprofen (Ibuprofen) 600 Mg Tablet, 600 MG PO Q6H PRN for PAIN, #30 TAB Prov:MAHESH OCHOA 12/19/22 Ibuprofen (Ibuprofen) 600 Mg Tablet, 600 MG PO TID PRN for PAIN for 7 Days, #20 TAB Prov:DECLAN MILLER MD 08/16/22 Time spent arranging discharge: 31-60 minutes SAM LOVE MD Jan 08, 2025 07:38
== END 2025-01-07 15:45 | disposition home or self-care (01) ==
LOC: EDH 08:57 → UNDOADMOB 11:59 → INTOOBSV 11:59 → EDHIP 11:59 → 2DH 17:43 → EDHIP 17:43 → INTOOBSV 01-06 08:15 → EDHIP 01-06 08:15 → 2DH 01-06 08:15 → OBSVTOIN 01-06 08:15
PROVIDERS: ADMIT Internal Medicine; ATTEND Internal Medicine
DX: D12.7 Benign neoplasm of rectosigmoid junction (principal); K64.0 First degree hemorrhoids; K92.1 Melena; I73.9 Peripheral vascular disease, unspecified; K57.30 Diverticulosis of large intestine without perforation or abscess without bleeding; E78.00 Pure hypercholesterolemia, unspecified; D49.0 Neoplasm of unspecified behavior of digestive system; I87.2 Venous insufficiency (chronic) (peripheral); N43.3 Hydrocele, unspecified; R42 Dizziness and giddiness; K57.90 Diverticulosis of intestine, part unspecified, without perforation or abscess without bleeding; Z79.01 Long term (current) use of anticoagulants; Z79.02 Long term (current) use of antithrombotics/antiplatelets; Z85.831 Personal history of malignant neoplasm of soft tissue; Z86.718 Personal history of other venous thrombosis and embolism; Z79.899 Other long term (current) drug therapy; Z98.890 Other specified postprocedural states
CPT/HCPCS: 96376 ×4; 96365; 96366 ×4; 96375; 96367; 99284; 80076; 80048; 85025 ×2; 85610; 85730; 85014 ×3; 85018 ×3; 86850; 86900; 86901; 83605; 82270; 36415 ×3; 74176; 93970; 83735 ×2; 80053 ×2; 82948; 45378; 85027; G0378 ×21; J0696 ×4; J2470 ×7; J3490 ×9; J2003; J2704; A4620; A4215; A4223; A4222; A4606; 96374; 99285

== ENCOUNTER 2025-04-10 11:03 | Emergency (ER) | payer OTHER ==
[~2025-04-10] VITALS: Ht 165.1 cm; Wt 65.3 kg
[~2025-04-10 11:03] MED LIST changes: +CLOP75TA32 PO; +HYDR30CR79 TP; -IBUP-1492 PO; +RIVA20TA PO
[2025-04-10 11:06] VITALS: TEMP 98.4
[2025-04-10 11:36] LABS: APPEARANCE,URINE CLEAR (CLEAR); GLUCOSE, URINE (UA) NEGATIVE (NEGATIVE); LEUKOCYTE ESTERASE ,URINE NEGATIVE Leu/uL (NEGATIVE); NITRATE,URINE NEGATIVE (NEGATIVE); OCCULT BLOOD,URINE SMALL (NEGATIVE)
[2025-04-10 11:40] LABS: IMMATURE GRANULOCYTE ABSOLUTE 0.03 K/uL (0-1); NUCLEATED RED BLOOD CELLS 0.0 % (0.0-0.19); PLATELET COUNT (AUTO) 309 K/uL (130-400); RED BLOOD CELL COUNT(AUTO) 4.56 MIL/uL (4.50-6.20); RED CELL DISTRIBUTION WIDTH 12.8 % (11.0-15.5); WHITE BLOOD COUNT (AUTO) 7.0 K/uL (4.8-10.8)
[2025-04-10 11:42] LABS: ADD UA MICROSCOPIC YES
[2025-04-10 11:49] LABS: CREATININE 0.8 mg/dL (0.5-1.3); GLOMERULAR FILTR. RATE CALC 101.0 mL/min (>90); GLUCOSE,RANDOM 104.0 mg/dL (70-105); SODIUM SERUM 137.0 mmol/L (136-145); UREA NITROGEN, BLOOD 16.0 mg/dL (7-18)
[2025-04-10 11:54] LABS: CREATINE KINASE, TOTAL 34.0 U/L (21-232)
--- NOTE | 2025-04-10 12:43 | HMCIMG ---
EXAM: CR Chest, 1 View. CLINICAL HISTORY: CHEST PAIN COMPARISON: None provided. FINDINGS: LUNGS: The lungs show no infiltrate or other acute finding. PLEURAL SPACES: No pleural effusion or pneumothorax. MEDIASTINUM: Cardiac size and mediastinal contours within normal limits. BONES: No aggressive appearing osseous lesion seen. IMPRESSION: No acute cardiopulmonary pathology is evident. /[place]
--- NOTE | 2025-04-10 13:10 | ERN ---
ED Note History of Present Illness Stated Complaint: CHEST PAIN Chief Complaint: Chest Pain Time Seen by MD: 11:08 Time Seen by Midlevel: 11:10 Dictation: 60-year-old male with a history of hypertension and lower extremity PE currently taking Xarelto and Plavix coming in with complaints of chest pain onset 7:00 a.m.. Patient states it is pressure-like pain. States from this morning till now patient pain has a improved. Denies having any nausea, vomiting, jaw pain, arm pain. Allergies: Coded Allergies: No Known Drug Allergies (Unverified Allergy, 03/23/12) Home Meds Active Scripts Hydrocortisone (Anusol-Hc) 2.5 % Cream..g., 1 APPL TP BID for 12 Days, #30 GM 1 Refill Prov:SAM LOVE MD 01/07/25 Reported Medications Rivaroxaban (Xarelto) 20 Mg Tablet, 20 MG PO DAILY, TAB 01/04/25 Clopidogrel Bisulfate (Clopidogrel) 75 Mg Tablet, 75 MG PO DAILY, TAB 01/04/25 Past Medical History Past Medical History: DVT, High Cholesterol Additional Past Medical Hx: COLON CA, LLE CLOT Surgical History: Other Surgical History Other: CA COLON REMOVED 2020,HERNIA REPAIR Review of System Dictation Constitutional: Negative for fever,chills, and weight loss Eyes: Negative for injury, pain,redness, and discharge ENT: Negative for injury,pain or swelling Cardiovascular: Positive for chest pain, palpitations, and edema Respiratory: Negative for shortness of breath, cough, and wheezing, Abdomen/GI: Negative for abdominal pain, nausea, vomiting, diarrhea, and constipation Back: Negative for injury and pain : Negative for injury, bleeding and discharge MS/Extremity: Negative for injury and deformity Skin: Negative for rash, and discoloration Neuro: Negative for headache, weakness, numbness, tingling, and seizure Psych: Negative for suicide ideation, homicidal ideation, and hallucinations Review of Systems: was completed Initial Vital Sign VS Vital Signs Date Time Temp Pulse Resp B/P (MAP) Pulse Ox O2 Delivery O2 Flow Rate FiO2 04/10/25 11:06 98.4 93 16 139/73 98 Room Air 0 04/10/25 14:05 21 Physical Exam Dictation General: awake, alert, NAD Head/Face: Normocephalic, atraumatic Eyes: PERRL, EOMI, vision at baseline ENT: oral cavity clear, TMs clear, no signs of infection Neck: Trachea midline, supple, no nuchal rigidity Cardiovascular: RRR, normal S1/S2, No MRGs, no JVD Respiratory: CTAB, no respiratory distress, No rales or wheezes Abdomen: Soft, non-tender, non-distended, normal bowel sounds, no guarding or rebound. Skin: Warm, dry, normal turgor, no rash MS/Extremity: Pulses equal, no cyanosis, neurovascular intact, FROM Neuro: COAx4, GCS 15, strength 5/5, CN 2-12 intact, normal cerebellar exam, normal gait, Psych: Normal behavior, mood, and affect normal Results (Laboratory/Radiology) Laboratory/Radiology Laboratory Tests Test 04/10/25 10:30 04/10/25 11:15 04/10/25 13:30 White Blood Count 7.0 K/uL (4.8-10.8) Red Blood Count 4.56 MIL/uL (4.50-6.20) Hemoglobin 14.4 g/dL (14.0-18.0) Hematocrit 41.5 % (42-54) L Mean Corpuscular Volume 91.0 fL (79-99) Mean Corpuscular Hemoglobin 31.6 pg (27.0-33.0) Mean Corpuscular Hemoglobin Concent 34.7 g/dL (32.0-36.0) Red Cell Distribution Width 12.8 % (11.0-15.5) Platelet Count 309 K/uL (130-400) Mean Platelet Volume 10.3 fL (7.5-10.5) Immature Granulocyte % (Auto) 0.4 % (0-1) Neutrophils (%) (Auto) 66.9 % (40.0-77.0) Lymphocytes (%) (Auto) 21.8 % (21.0-51.0) Monocytes (%) (Auto) 10.2 % (3.0-13.0) Eosinophils (%) (Auto) 0.3 % (0.0-8.0) Basophils (%) (Auto) 0.4 % (0.0-5.0) Neutrophils # (Auto) 4.7 K/uL (1.8-7.7) Lymphocytes # (Auto) 1.5 K/uL (1.0-4.8) Monocytes # (Auto) 0.7 K/uL (0.1-1.0) Eosinophils # (Auto) 0.02 K/uL (0.00-0.70) Basophils # (Auto) 0.03 K/uL (0.00-0.20) Absolute Immature Granulocyte (auto 0.03 K/uL (0-1) Nucleated Red Blood Cells 0.0 % (0.0-0.19) Sodium Level 137 mmol/L (136-145) Potassium Level 3.9 mmol/L (3.5-5.1) Chloride Level 105 mmol/L (101-111) Carbon Dioxide Level 24 mmol/L (21-32) Blood Urea Nitrogen 16 mg/dL (7-18) Creatinine 0.8 mg/dL (0.5-1.3) Glomerular Filtration Rate Calc 101 mL/min (>90) Random Glucose 104 mg/dL (70-105) Total Calcium 8.6 mg/dL (8.5-10.1) Total Creatine Kinase 34 U/L (21-232) # Troponin I High Sensitivity 5 ng/L (4-75) 5 ng/L (4-75) B-Type Natriuretic Peptide 77 pg/mL (0-100) Urine Color LIGHT-YELLOW (YELLOW) Urine Appearance CLEAR (CLEAR) Urine pH 6.0 (5.0-8.0) Urine Specific [place] 1.019 (1.001-1.031) Urine Protein NEGATIVE mg/dL (NEGATIVE) Urine Glucose (UA) NEGATIVE mg/dL (NEGATIVE) Urine Ketones NEGATIVE mg/dL (NEGATIVE) Urine Occult Blood SMALL (NEGATIVE) H Urine Nitrate NEGATIVE (NEGATIVE) Urine Bilirubin NEGATIVE mg/dL (NEGATIVE) Urine Urobilinogen 0.2 mg/dL (0.2-1.0) Urine Leukocyte Esterase NEGATIVE Marva/uL Urine RBC 6-10 /HPF (0-1) H Urine WBC 2-5 /HPF (0-1) H Urine Bacteria None /HPF (None Seen) Labs Reviewed?: Yes EKG Comment: EKGs done at 11:08 a.m., sinus rhythm rate 79. X-RAY Comment: [address] [address] IMAGING REPORT Signed PATIENT: DECLAN MENDENHALL MR#: [id number] : 1965 SEX: M AGE: 60 LOCATION: [facility] ORDER 17 STATUS: REG ER REPORT#: [id number] SERVICE 16 REASON: CHEST PAIN ORDERING PHYSICIAN: SUZY MARION CNP PROCEDURE: CXR1VW - CHEST 1VW EXAM: CR Chest, 1 View. CLINICAL HISTORY: CHEST PAIN COMPARISON: None provided. FINDINGS: LUNGS: The lungs show no infiltrate or other acute finding. PLEURAL SPACES: No pleural effusion or pneumothorax. MEDIASTINUM: Cardiac size and mediastinal contours within normal limits. BONES: No aggressive appearing osseous lesion seen. IMPRESSION: No acute cardiopulmonary pathology is evident. /[place] DICTATED BY: ANILA CHA Jr., MD DATE: 04/10/251341 ELECTRONICALLY SIGNED BY: ANILA CHA Jr., MD DATE: 04/10/25 134 ED Course ED Course Orders Procedure Category Date Status Time Vital Signs Per CPOE 04/10/25 Transmitted Routine 11:17 Chest 1vw RAD 04/10/25 Resulted 11:17 12 Lead Ekg Tracing- EKG 04/10/25 Complete Technical 11:17 Oxygen By Nc/Pulse Ox CPOE 04/10/25 Transmitted 11:17 Maintain Iv CPOE 04/10/25 Transmitted 11:17 Iv Insertion CPOE 04/10/25 Transmitted 11:17 Cardiac Monitoring CPOE 04/10/25 Transmitted 11:17 Pulse Oximetry With CPOE 04/10/25 Transmitted Vs And Prn 11:17 Cbc With Differential LAB 04/10/25 Complete 11:17 Activity: Br W/Brp CPOE 04/10/25 Transmitted With Assist 11:17 Creatine Kinase, Total LAB 04/10/25 Complete 11:17 Troponin I High LAB 04/10/25 Complete Sensitivity 11:17 Urinalysis Profile LAB 04/10/25 Complete 11:17 Basic Metabolic Panel LAB 04/10/25 Complete 11:17 B-Type Natriuretic LAB 04/10/25 Complete Peptide 11:17 Nitroglycerin 0.4mg PHA 04/10/25 In Process Sl Tab (Nitrostat) 13:30 Troponin I High LAB 04/10/25 Complete Sensitivity 13:06 Current Medications Medications (Trade) Dose Ordered Sig/Jeffrey Route PRN Reason Start Time Stop Time Status Last Admin Dose Admin Nitroglycerin (Nitrostat) 0.4 mg AD PRN SL CHEST PAIN 04/10/25 13:30 05/10/25 13:29 04/10/25 14:09 Vital Signs Date Time Temp Pulse Resp B/P (MAP) Pulse Ox O2 Delivery O2 Flow Rate FiO2 04/10/25 14:05 71 18 122/77 97 Room Air* 0 21 04/10/25 11:06 98.4 93 16 139/73 98 Room Air 0 HEART Score Response (Comments) Value History: Low suspicion (0) 0 EKG: Normal 0 Age: 45-65yrs (+1) 1 Risk Factors: 1-2 risk factors (+1) 1 Initial Troponin: Normal limit (0) 0 Total 2 Medical Decision Making MDM MDM: 60-year-old male with a history of hypertension and lower extremity PE currently taking Xarelto and Plavix coming in with complaints of chest pain onset 7:00 a.m.. Patient states it is pressure-like pain. States from this morning till now patient pain has a improved. Denies having any nausea, vomiting, jaw pain, arm pain.Cardiac workup is unremarkable. Troponin x2 negative. EKGs did not show any ST elevations or reciprocal changes. Heart score of two. Low risk. After two nitros patient's pain was relieved. With a offered admission or discharge home with follow up, patient preferred to follow up outpatient with the his social work instructor. Educated on signs and symptoms of when to return to the emergency room. Differential diagnosis: GERD, ACS, gastritis, pancreatitis Rationale: Tests considered and ordered secondary to shared decision making include: Previous outside records reviewed: Old ER visits. Risk of complication and/or morbidity or mortality of patient management: None Medications-Per medication reconciliation Need for hospitalization: Patient does not meet criteria for hospitalization. Need for emergency major/minor surgery: No There are no social concerns with this patient. Prescription drug management Prescriptions will include symptomatic care Patient's prior external medical records from other ER visits were reviewed by me as indicated. Prior testing and results from previous visits were reviewed. Prior tests were taken into account with medical decision making and resource utilization, independent historian/historians were used to obtain complete medical history. I independently interpreted the test that were performed, results were reviewed by me and considered findings on radiology if ordered. Medical management and examination interpretation discussions were had by me with other qualified healthcare professionals as indicated for the patient's care. DX & DISP Disposition: Discharge Departure Impression: Primary Impression: Chest pain Condition: Stable Additional Instructions: Please follow up with your social work instructor between 1-2 days. Return to the hospital if you have a returning chest pain, nausea and vomiting, back pain or jaw pain. Referrals: MAXIMILIANO KILLIAN (PCP) Time of Disposition: 14:23 I have reviewed the case, and I agree with, Diagnosis and Plan SUZY MARION [facility] Apr 10, 2025 13:10
--- NOTE | 2025-04-10 13:27 | EKG ---
[facility] Test Date: 2025-04-10 Test Time: 11:08:38 Pat Name: DECLAN MENDENHALL Department: [facility] Room: Gender: M Historiographer: [id number] : 1965 Requested By: SUZY MARION Order Number: [id number] Reading MD: Clementina Juarez Measurements Intervals [place] Rate: 79 P: 46 SC: 134 QRS: 67 QRSD: 81 T: 37 QT: 378 QTc: 434 Interpretive Statements Sinus rhythm Compared to ECG 09/08/2024 17:36:07 No significant changes Electronically Signed On 04-11-2025 08:48:07 GATE TENDER by Clementina Juarez Please click the below link to view image of tracing.
[2025-04-10 14:05] VITALS: BP 122/77; PULSE 71; RESP 18; O2SAT 97
[2025-04-10] MEDS: NITROGLYCERIN 0.4 MG SL TAB SL PRN (14:09)
== END 2025-04-10 14:40 | disposition home or self-care (01) ==
LOC: EDH 11:03
DX: R07.89 Other chest pain (principal); E78.00 Pure hypercholesterolemia, unspecified; Z79.01 Long term (current) use of anticoagulants; Z79.02 Long term (current) use of antithrombotics/antiplatelets; Z85.038 Personal history of other malignant neoplasm of large intestine; Z86.718 Personal history of other venous thrombosis and embolism; Z98.890 Other specified postprocedural states
CPT/HCPCS: 36415; 71045; 80048; 81001; 82550; 83880; 84484; 85025; 93005; 99283